=== PATIENT | male | born 1975 | race Two or more races ===

== ENCOUNTER 2021-01-10 11:31 | Outpatient (REF) | payer BC, SELFPAY ==
[2021-01-10 14:36] LABS: Anion Gap 15 (12-20); Blood Urea Nitrogen 18 mg/dL (9-16); Calcium 8.9 mg/dL (8.4-10.2); Carbon Dioxide 22 mmol/L (22-29); Chloride 106 mmol/L (96-108); Cholesterol 283 mg/dL; Estimated Glomerular Filt Rate > 60; Glucose Fasting 97 mg/dL (60-99); HDL Cholesterol 48 mg/dL; LDL Cholesterol Calculated 199 mg/dl; Potassium 4.2 mmol/L (3.3-5.1); Sodium 139 mmol/L (135-145); Triglycerides 180 mg/dL
[2021-01-10 14:41] LABS: Creatinine Urine 265.32 mg/dL
[2021-01-10 14:57] LABS: Microalbum/Creatinine Ratio Ur 690.8 ug/mg cr
== END 2021-01-10 11:32 | disposition home or self-care (01) ==
LOC: HO.HMGCLDS 11:31
PROVIDERS: PCP Internal Medicine; Visit Provider Internal Medicine
DX: I10 Essential (primary) hypertension (principal); E78.2 Mixed hyperlipidemia; R80.9 Proteinuria, unspecified
CPT/HCPCS: 36415; 80048; 80061; 82043

== ENCOUNTER 2021-01-24 10:29 | Outpatient (REF) | payer BC, SELFPAY ==
--- NOTE | ~2021-01-24 | US_ITS ---
EXAMINATION: US RETROPERITONEAL LIMITED (RENAL ONLY) CLINICAL INFORMATION: Proteinuria. Hypertension. COMPARISON: None TECHNIQUE: Real-time imaging of the kidneys. FINDINGS: RIGHT KIDNEY: 11.4 x 6.8 x 6.4 cm (SAG x AP x TRV). The kidney is normal in size, contour, and echogenicity. Renal cortical thickness is normal. No hydronephrosis. A tiny subcentimeter lower pole cyst is noted. No solid masses seen. There are multiple echogenic foci which do not demonstrate twinkle artifact. One measuring about 3 mm could be a stone. LEFT KIDNEY: 12.4 x 6.6 x 5.7 cm (SAG x AP x TRV). The kidney is normal in size, contour, and echogenicity. Renal cortical thickness is normal. No calculi or focal parenchymal lesions. No hydronephrosis. Similar to the right, there are multiple echogenic foci with no twinkle artifact that may be vascular interfaces rather than calculi. US/US renal BI IMPRESSION: Tiny right lower pole renal cyst. Question of mid pole right renal calculus.
[2021-01-24 12:22] LABS: MANUAL DIFF FLAG NO
[2021-01-24 12:28] LABS: Basophils Percent Auto 0.4 % (0-2); Eosinophils Absolute Auto 0.2 X10*3/uL (0.0-0.4); Eosinophils Percent Auto 2.7 % (0-4); Hematocrit 45.8 % (42-52); Hemoglobin 15.8 g/dl (14.0-18.0); Imm Gran Abs Auto 0.02 X10*3/uL (0.00-0.03); Imm Gran Pct Auto 0.3 % (0.0-0.4); Lymphocytes Absolute Auto 3.3 X10*3/uL (1.2-4.9); Lymphocytes Percent Auto 46.9 % (20-40); Mean Corpuscular HGB Conc 34.5 g/dl (31.0-36.0); Mean Corpuscular Hemoglobin 32.3 pg (27.0-33.0); Mean Corpuscular Volume 93.7 fL (80-98); Mean Platelet Volume 10.9 fL (9.4-12.4); Monocytes Absolute Auto 0.5 X10*3/uL (0.1-1.2); Monocytes Percent Auto 6.4 % (2-11); Neutrophils Absolute Auto 3.1 X10*3/uL (2.0-8.3); Neutrophils Percent Auto 43.3 % (45-73); Platelet Count 205 X10*3/uL (160-400); Red Blood Count 4.89 X10*6/uL (4.60-5.80); Red Cell Distribution Width 11.9 % (11.0-16.0); White Blood Count 7.1 X10*3/uL (4.8-10.8)
[2021-01-24 12:32] LABS: Prothrombin Time 11.9 SEC (10.8-13.0)
[2021-01-24 12:45] LABS: Glucose Urine UA NEG (NEG); Leukocyte Esterase Urine NEG (NEG); Nitrite Urine NEG (NEG); Specific Gravity - Urine <= 1.005 (1.005-1.025); Urine Blood NEG (NEG); Urine Ketones NEG (NEG); Urine Protein NEG (NEG-TRACE)
[2021-01-24 12:48] LABS: Appearance Urine CLEAR; Color Urine STRAW
[2021-01-24 13:42] LABS: Creatinine Urine 14.77 mg/dL; Microalbum/Creatinine Ratio Ur 365.6 ug/mg cr
[2021-01-24 13:45] LABS: Alanine Aminotransferase 28 U/L (0-40); Albumin Level 4.2 g/dL (3.5-5.0); Alkaline Phosphatase 67 U/L (39-117); Aspartate Amino Transferase 23 U/L (5-37); Aspartate Amino Transferase 25 U/L (5-37); Bilirubin Direct 0.2 mg/dL (0.0-0.5); Bilirubin Total 0.4 mg/dL (0.0-1.0); Cholesterol 228 mg/dL; HDL Cholesterol 51 mg/dL; LDL Cholesterol Calculated 148 mg/dl; Total Protein 6.6 g/dL (6.5-8.0); Triglycerides 148 mg/dL; Uric Acid 5.3 mg/dL (3.4-7.0)
[2021-01-25 16:22] LABS: Complement C3 126 mg/dL (82-185)
[2021-01-25 22:46] LABS: Prot Elec - Albumin 4.2 g/dL (3.8-4.8); Prot Elec - Alpha1 0.2 g/dL (0.2-0.3); Prot Elec - Alpha2 0.6 g/dL (0.5-0.9); Prot Elec - Beta 1 0.4 g/dL (0.4-0.6); Prot Elec - Beta 2 0.3 g/dL (0.2-0.5); Prot Elec - Gamma 0.8 g/dL (0.8-1.7); Prot Elec - Total Protein 6.6 g/dL (6.1-8.1)
[2021-01-28 15:07] LABS: Anti Glomerular Basement Memb <1.0 AI; Anti Nuclear Antibody Screen NEGATIVE (NEGATIVE); Myeloperoxidase Antibody <1.0 AI; Proteinase 3 PR3 Antibodies <1.0 AI
[2021-01-28 23:56] LABS: Lipoprotein Asso Phospholip A2 113 (<=123)
== END 2021-01-24 10:30 | disposition home or self-care (01) ==
LOC: HO.US 10:29
PROVIDERS: PCP Internal Medicine; Visit Provider Internal Medicine Nephrology
DX: R80.9 Proteinuria, unspecified (principal); I10 Essential (primary) hypertension; E78.2 Mixed hyperlipidemia
CPT/HCPCS: 36415; 76775; 80061; 80076; 81003; 82043; 83520; 83698; 84155; 84165; 84450; 84460; 84550; 85025; 85610; 86021; 86038; 86039; 86160

== ENCOUNTER 2021-01-28 11:27 | Outpatient (REF) | payer BC, SELFPAY ==
[2021-01-28 12:09] LABS: Creatinine, mg/dL 91.89; Protein mg/dL 22 mg/dL
[2021-01-28 12:52] LABS: Creatinine, 24Hr Urine 2.2 G/Day (1.0-2.0); Protein 24 Hr Urine 517 mg/Day (<150); Total Volume 24 Hour Urine 2350 mL
== END 2021-01-28 11:28 | disposition home or self-care (01) ==
LOC: HO.LNP 11:27
PROVIDERS: Visit Provider Internal Medicine Nephrology
DX: R80.9 Proteinuria, unspecified (principal); I10 Essential (primary) hypertension
CPT/HCPCS: 84156

== ENCOUNTER 2021-05-30 09:24 | Outpatient (REF) | payer BC, SELFPAY ==
[2021-05-30 10:39] LABS: Hematocrit 42.6 % (42-52); Hemoglobin 14.8 g/dl (14.0-18.0); Mean Corpuscular HGB Conc 34.7 g/dl (31.0-36.0); Mean Corpuscular Hemoglobin 32.2 pg (27.0-33.0); Mean Corpuscular Volume 92.6 fL (80-98); Mean Platelet Volume 10.8 fL (9.4-12.4); Platelet Count 189 X10*3/uL (160-400); Red Cell Distribution Width 12.4 % (11.0-16.0); White Blood Count 5.9 X10*3/uL (4.8-10.8)
[2021-05-30 10:44] LABS: Prothrombin Time 11.8 SEC (9.9-13.0)
[2021-05-30 11:04] LABS: Anion Gap 12 (12-20); Blood Urea Nitrogen 13 mg/dL (9-16); Calcium 9.1 mg/dL (8.4-10.2); Carbon Dioxide 26 mmol/L (22-29); Chloride 106 mmol/L (96-108); Estimated Glomerular Filt Rate > 60; Potassium 4.4 mmol/L (3.3-5.1); Sodium 140 mmol/L (135-145)
[2021-05-30 11:14] LABS: Alanine Aminotransferase 33 U/L (0-40); Aspartate Amino Transferase 30 U/L (5-37); Cholesterol 223 mg/dL; HDL Cholesterol 40 mg/dL; LDL Cholesterol Calculated 147 mg/dl; Triglycerides 183 mg/dL
[2021-05-30 11:57] LABS: Creatinine Urine 245.17 mg/dL; Protein/Creatinine Ratio, Ur 0.27 (<0.2); Total Protein Urine Random 67 mg/dL (<12)
== END 2021-05-30 09:25 | disposition home or self-care (01) ==
LOC: HO.HMGCLDS 09:24
PROVIDERS: Absent Provider Internal Medicine Nephrology; PCP Internal Medicine; Visit Provider Internal Medicine
DX: E78.2 Mixed hyperlipidemia (principal); R80.9 Proteinuria, unspecified
CPT/HCPCS: 36415; 80051; 80061; 82310; 82565; 84156; 84450; 84460; 84520; 85027; 85610

== ENCOUNTER 2021-09-27 12:02 | Outpatient (REF) | payer BC, SELFPAY ==
[2021-09-27 14:31] LABS: Anion Gap 13 (12-20); Blood Urea Nitrogen 13 mg/dL (9-16); Calcium 9.2 mg/dL (8.4-10.2); Carbon Dioxide 27 mmol/L (22-29); Chloride 102 mmol/L (96-108); Estimated Glomerular Filt Rate > 60; Potassium 4.4 mmol/L (3.3-5.1); Sodium 138 mmol/L (135-145)
[2021-09-27 14:33] LABS: Alanine Aminotransferase 30 U/L (0-40); Aspartate Amino Transferase 28 U/L (5-37); Cholesterol 211 mg/dL; HDL Cholesterol 44 mg/dL; LDL Cholesterol Calculated 138 mg/dl; Triglycerides 146 mg/dL
[2021-09-27 14:37] LABS: Creatinine Urine 191.36 mg/dL; Protein/Creatinine Ratio, Ur 0.82 (<0.2); Total Protein Urine Random 157 mg/dL (<12)
== END 2021-09-27 12:03 | disposition home or self-care (01) ==
LOC: HO.HMGCLDS 12:02
PROVIDERS: Absent Provider Internal Medicine Nephrology; Visit Provider Internal Medicine
DX: I10 Essential (primary) hypertension (principal); R78.2 Finding of cocaine in blood; R80.9 Proteinuria, unspecified
CPT/HCPCS: 36415; 80051; 80061; 82310; 82565; 84156; 84450; 84460; 84520

== ENCOUNTER 2021-11-15 08:34 | Outpatient (REF) | payer BC, SELFPAY ==
[2021-11-15 11:32] LABS: Eosinophils Absolute Auto 0.1 X10*3/uL (0.0-0.4); Eosinophils Percent Auto 2.2 % (0-4); Hematocrit 44.4 % (42.0-52.0); Hemoglobin 15.3 g/dl (14.0-18.0); Imm Gran Abs Auto 0.01 X10*3/uL (0.00-0.03); Imm Gran Pct Auto 0.2 % (0.0-0.4); Lymphocytes Absolute Auto 2.5 X10*3/uL (1.2-4.9); MANUAL DIFF FLAG NO; Mean Corpuscular HGB Conc 34.5 g/dl (31.0-36.0); Mean Corpuscular Hemoglobin 32.1 pg (27.0-33.0); Mean Corpuscular Volume 93.1 fL (80.0-98.0); Mean Platelet Volume 11.6 fL (9.4-12.4); Monocytes Absolute Auto 0.4 X10*3/uL (0.1-1.2); Monocytes Percent Auto 6.9 % (2-11); Neutrophils Absolute Auto 2.5 x10*3/uL (2.0-8.3); Neutrophils Percent Auto 44.7 % (45-73); Platelet Count 194 X10*3/uL (160-400); Red Blood Count 4.77 X10*6/uL (4.60-5.80); Red Cell Distribution Width 12.1 % (11.0-16.0); White Blood Count 5.5 X10*3/uL (4.8-10.8)
[2021-11-15 11:40] LABS: Appearance Urine CLEAR; Color Urine YELLOW; Glucose Urine UA NEG (NEG); Leukocyte Esterase Urine NEG (NEG); Nitrite Urine NEG (NEG); Specific Gravity - Urine 1.015 (1.005-1.025); Urine Blood NEG (NEG); Urine Ketones NEG (NEG); Urine Protein TRACE MG/DL (NEG-TRACE)
[2021-11-15 11:46] LABS: Prothrombin Time 11.7 SEC (9.9-13.0)
[2021-11-15 11:57] LABS: Anion Gap 12 (12-20); Blood Urea Nitrogen 16 mg/dL (9-16); Calcium 9.4 mg/dL (8.4-10.2); Carbon Dioxide 28 mmol/L (22-29); Chloride 104 mmol/L (96-108); Estimated Glomerular Filt Rate > 60; Potassium 4.6 mmol/L (3.3-5.1); Sodium 139 mmol/L (135-145)
[2021-11-15 12:16] LABS: HIV AB/AG Nonreactive (Nonreactive); HIV Num 1 0.06 S/CO (0.00-0.99); Protein/Creatinine Ratio, Ur 0.13 (<0.2); Total Protein Urine Random 27 mg/dL (<12)
[2021-11-15 14:00] LABS: HBS Num1 0.78 mIU/mL (0-7.99); ~HepC Num1 0.11 S/CO (0.00-0.79); ~Hepatitis B Surface Antibody NONREACTIVE (Nonreactive); ~Hepatitis C Antibody Nonreactive (Nonreactive)
[2021-11-18 11:56] LABS: Complement C3 90 mg/dL (82-185)
[2021-11-18 16:17] LABS: Neutrophil Cyto Ab Screen NEGATIVE (NEGATIVE)
[2021-11-18 17:37] LABS: Kappa Light Chains Quant. RU <1.00 mg/dL (<2.00); Lambda Light Chains Quant. RU <1.00 mg/dL (<2.00)
[2021-11-19 07:36] LABS: Anti Nuclear Antibody Screen NEGATIVE (NEGATIVE)
== END 2021-11-15 08:35 | disposition home or self-care (01) ==
LOC: HO.HMGCLDS 08:34
PROVIDERS: Visit Provider Internal Medicine Nephrology
DX: R80.9 Proteinuria, unspecified (principal); I10 Essential (primary) hypertension
CPT/HCPCS: 80051; 81003; 82310; 82565; 83520; 83883; 84156; 84520; 85025; 85610; 86036; 86037; 86038; 86039; 86160; 86255; 86706; 86803; 87389

== ENCOUNTER 2021-11-18 08:29 | Outpatient (REF) | payer BC, SELFPAY ==
[2021-11-18 13:03] LABS: Creatinine, mg/dL 58.73; Protein mg/dL 17 mg/dL
[2021-11-18 13:08] LABS: Creatinine, 24Hr Urine 1.8 G/Day (1.0-2.0); Protein 24 Hr Urine 519 mg/Day (<150); Total Volume 24 Hour Urine 3050 mL
== END 2021-11-18 08:30 | disposition home or self-care (01) ==
LOC: HO.HMGCLNP 08:29
PROVIDERS: Visit Provider Internal Medicine Nephrology
DX: R80.9 Proteinuria, unspecified (principal); I10 Essential (primary) hypertension
CPT/HCPCS: 84156

== ENCOUNTER 2022-01-10 09:59 | Outpatient (REF) | payer BC, SELFPAY ==
[2022-01-10 11:49] LABS: Alanine Aminotransferase 40 U/L (0-40); Aspartate Amino Transferase 27 U/L (5-37); Cholesterol 209 mg/dL; HDL Cholesterol 42 mg/dL; LDL Cholesterol Calculated 132 mg/dl; Triglycerides 177 mg/dL
== END 2022-01-10 10:00 | disposition home or self-care (01) ==
LOC: HO.HMGCLDS 09:59
PROVIDERS: PCP Internal Medicine; Visit Provider Internal Medicine
DX: E78.2 Mixed hyperlipidemia (principal)
CPT/HCPCS: 36415; 80061; 84450; 84460

== ENCOUNTER 2022-04-29 12:04 | Outpatient (REF) | payer BC, SELFPAY ==
[2022-04-29 14:06] LABS: Alanine Aminotransferase 59 U/L (0-40); Anion Gap 14 (12-20); Aspartate Amino Transferase 39 U/L (5-37); Blood Urea Nitrogen 14 mg/dL (9-16); Calcium 9.2 mg/dL (8.4-10.2); Carbon Dioxide 26 mmol/L (22-29); Chloride 105 mmol/L (96-108); Cholesterol 193 mg/dL; Estimated Glomerular Filt Rate > 60; Glucose Fasting 103 mg/dL (60-99); HDL Cholesterol 41 mg/dL; LDL Cholesterol Calculated 119 mg/dl; Potassium 4.2 mmol/L (3.3-5.1); Sodium 141 mmol/L (135-145); Triglycerides 166 mg/dL
== END 2022-04-29 12:05 | disposition home or self-care (01) ==
LOC: HO.HMGCLDS 12:04
PROVIDERS: PCP Internal Medicine; Visit Provider Internal Medicine
DX: E78.2 Mixed hyperlipidemia (principal); I10 Essential (primary) hypertension
CPT/HCPCS: 36415; 80048; 80061; 84450; 84460

== ENCOUNTER 2022-06-19 10:19 | Outpatient (REF) | payer BC, SELFPAY ==
[2022-06-19 14:27] LABS: Anion Gap 15 (12-20); Blood Urea Nitrogen 17 mg/dL (9-16); Calcium 9.8 mg/dL (8.4-10.2); Carbon Dioxide 26 mmol/L (22-29); Chloride 103 mmol/L (96-108); Estimated Glomerular Filt Rate > 60; Potassium 4.8 mmol/L (3.3-5.1); Sodium 139 mmol/L (135-145)
[2022-06-19 16:40] LABS: Creatinine Urine 281.02 mg/dL; Protein/Creatinine Ratio, Ur 0.66 (<0.2); Total Protein Urine Random 185 mg/dL (<12)
== END 2022-06-19 10:20 | disposition home or self-care (01) ==
LOC: HO.HMGCLDS 10:19
PROVIDERS: PCP Internal Medicine; Visit Provider Internal Medicine Nephrology
DX: I10 Essential (primary) hypertension (principal); R80.9 Proteinuria, unspecified
CPT/HCPCS: 36415; 80051; 82310; 82565; 84156; 84520

== ENCOUNTER 2022-09-15 11:09 | Outpatient (REF) | payer BC, SELFPAY ==
[2022-09-15 14:23] LABS: Hematocrit 38.4 % (42.0-52.0); Hemoglobin 13.6 g/dl (14.0-18.0); Mean Corpuscular HGB Conc 35.4 g/dl (31.0-36.0); Mean Corpuscular Hemoglobin 32.4 pg (27.0-33.0); Mean Corpuscular Volume 91.4 fL (80.0-98.0); Mean Platelet Volume 10.9 fL (9.4-12.4); Platelet Count 229 X10*3/uL (160-400); Red Cell Distribution Width 11.9 % (11.0-16.0); White Blood Count 4.9 X10*3/uL (4.8-10.8)
[2022-09-15 14:54] LABS: Prostate Specific Antigen Scr 26.93 ng/mL (<0.05-4.0)
== END 2022-09-15 11:10 | disposition home or self-care (01) ==
LOC: HO.HMGCLDS 11:09
PROVIDERS: Visit Provider Internal Medicine
DX: N41.0 Acute prostatitis (principal); Z12.5 Encounter for screening for malignant neoplasm of prostate
CPT/HCPCS: 36415; 84153; 85027

== ENCOUNTER 2022-09-25 09:07 | Outpatient (REF) | payer BC, SELFPAY ==
[2022-09-25 11:22] LABS: MANUAL DIFF FLAG NO
[2022-09-25 11:28] LABS: Basophils Percent Auto 0.3 % (0-2); Eosinophils Absolute Auto 0.2 X10*3/uL (0.0-0.4); Eosinophils Percent Auto 2.6 % (0-4); Hematocrit 42.3 % (42.0-52.0); Hemoglobin 14.4 g/dl (14.0-18.0); Imm Gran Abs Auto 0.01 X10*3/uL (0.00-0.03); Imm Gran Pct Auto 0.2 % (0.0-0.4); Lymphocytes Absolute Auto 3.5 X10*3/uL (1.2-4.9); Lymphocytes Percent Auto 56.6 % (20-40); Mean Corpuscular Hemoglobin 31.9 pg (27.0-33.0); Mean Corpuscular Volume 93.6 fL (80.0-98.0); Mean Platelet Volume 10.4 fL (9.4-12.4); Monocytes Absolute Auto 0.3 X10*3/uL (0.1-1.2); Monocytes Percent Auto 5.6 % (2-11); Neutrophils Absolute Auto 2.1 x10*3/uL (2.0-8.3); Neutrophils Percent Auto 34.7 % (45-73); Platelet Count 277 X10*3/uL (160-400); Red Blood Count 4.52 X10*6/uL (4.60-5.80); Red Cell Distribution Width 12.3 % (11.0-16.0); White Blood Count 6.1 X10*3/uL (4.8-10.8)
[2022-09-25 12:00] LABS: Iron 83 mcg/dL (45-160); Percent Iron Saturation 27 % (15-50); Total Iron Binding Capacity 306 mcg/dL (228-428); Unsaturated Iron Binding 223 ug/dL
[2022-09-25 12:32] LABS: PSA,Total (Free>4and<10) 7.72 ng/mL (0.00-4.00)
[2022-09-29 11:03] LABS: Free Prostate Spec Ag 0.3 ng/mL; Percent Free Prostate Spec Ag 4 % (calc) (>25); Prostate Specific Ag Total 7.4 ng/mL (< OR = 4.0)
== END 2022-09-25 09:08 | disposition home or self-care (01) ==
LOC: HO.HMGCLDS 09:07
PROVIDERS: PCP Internal Medicine; Visit Provider Internal Medicine
DX: Z12.5 Encounter for screening for malignant neoplasm of prostate (principal); N41.0 Acute prostatitis; R97.20 Elevated prostate specific antigen [PSA]; D64.9 Anemia, unspecified
CPT/HCPCS: 36415; 83540; 84153; 84154; 85025

== ENCOUNTER 2022-10-02 09:25 | Outpatient (AMB) | payer BC, SELFPAY ==
--- NOTE | 2022-10-02 09:31 | A.OFFPC_ITS ---
Vital Signs 10/02/22 09:32 Height 5 ft 5 in Weight 170 lb BMI 28.3 BP 122/80 Blood Pressure Location Lt brachial Position Sitting Pulse 74 Pulse Source Pulse Oximeter Pulse Oximetry (%) 98 Oxygen Delivery Method Room Air Intake Visit Reasons: f/u lab results Allergies dust and pollen Allergy (Unknown, Verified 05/13/23 12:02) unknown Tobacco use date assessed: 10/02/22 HPI f/u lab results HPI Details 47-year-old male patient presenting [facility] office today for follow-up after being seen at the walk-in clinic 09/15/2022 complaining of difficulty urinating with fevers and chills, which has been present now for up approxi mately1 week. This was accompanied by some urinary frequency and urgency and dysuria. Denies any accompanying fever, no nausea vomiting or abdominal pain reported. Denies any penile discharge. Sexually active with just 1 partner. He was prescribed ciprofloxacin to be taken for 7 days with improvement of symptoms but patient states that it started to come back again. [facility] Medical History (Updated 05/13/23 @ 12:19 by Yu Sorto MD) Prostatitis Elevated PSA Anemia Acute prostatitis History of COVID-19 Mixed dyslipidemia Family history of kidney disease Essential hypertension Microalbuminuria Impaired fasting glucose Hypertriglyceridemia Surgical History No pertinent past surgical history Family History Father HTN (hypertension) Stroke Mother Diabetes mellitus HTN (hypertension) Brother Kidney failure Maternal Grandmother Unknown family medical history Sister Breast cancer Son No problems noted. Social History Housing: House Alcohol intake: current Alcohol intake frequency: a few times a week Alcohol type: beer Patient Tobacco Use Status: Never used Tobacco e-Cigarette/Vaping Use: Never Used Second Hand Smoke Exposure: No service: No Current occupational status: employed Cognitive needs: No Hearing needs: No Vision needs: No Questionnaire PHQ-9 Over the last 2 weeks, how often have you been bothered by any of the following problems? 1. Little interest or pleasure in doing things: not at all 2. Feeling down, depressed, or hopeless: not at all 3. Trouble falling or staying asleep, or sleeping too much: not at all 4. Feeling tired or having little energy: not at all 5. Poor appetite or overeating: not at all 6. Feeling bad about yourself - or that you are a failure or have let yourself or your family down: not at all 7. Trouble concentrating on things, such as reading the newspaper or watching television: not at all 8. Moving or speaking so slowly that other people could have noticed. Or the opposite - being so fidgety or restless that you have been moving around a lot more than usual: not at all 9. Thoughts that you would be better off or of hurting yourself in some way: not at all Total score: 0 Depression Screening Interpretation: Negative 78046 - PHQ-9 Billing: Yes Source: Developed by Drs. Ash Haas, Deisy Porter, Anthony Ruiz and colleagues, with an educational nigel from [employer]. Thrive Questionnaire Declines Thrive assessment: No Date Thrive assessed: 10/02/22 I am a: Patient What is your living situation today?: I have a steady place to live Within the past 12 months, did the food you bought not last and you didn't have the money to get more?: Never true Within the past 12 months, did you worry whether your food would run out before you got money to buy more?: Never true Do you have trouble paying for medicines?: No Do you have trouble getting transportation to medical appointments?: No Do you have trouble paying your heating and electricity bill?: No Do you have trouble taking care of your child, family member or friend?: No Do you have trouble with day-to-day activities such as bathing, preparing meals, shopping, managing finances, etc.?: No Are you currently unemployed and looking for a job?: No Are you interested in more education?: No AUDIT C Alcohol Use Questionnaire (AUDIT-C) 1. How often do you have a drink containing alcohol?: Never 3. How often do you have six or more drinks on one occasion?: Never Total Score: 0 DUTCH-7 AMB Questionnaire DUTCH-7 Date DUTCH - 7 assessed: 10/02/22 Feeling nervous, anxious, or on edge: 0 = Not at all Not being able to stop or control worryin = Not at all Worrying too much about different things: 0 = Not at all Trouble relaxin = Not at all Being so restless that it is hard to sit still: 0 = Not at all Becoming easily annoyed or irritable: 0 = Not at all Feeling afraid as if something awful might happen: 0 = Not at all Total DUTCH-7 score (0-4 normal; 5-9 mild; 10-14 moderate; 15-21 severe): 0 Source: Developed by Drs. Ash Haas, Deisy Porter, Anthony Ruiz and colleagues, with an educational nigel from [employer]. DUTCH-7 Assessment Billing DUTCH-7 Assessment Tool: DUTCH-7 Assessment 16302 Review of Systems Const All systems reviewed & are unremarkable except as noted in HPI and below Physical exam (Primary Care) Vital Signs: Last Vital Signs Pulse 74 10/02/22 09:32 BP 122/80 10/02/22 09:32 Pulse Ox 98 10/02/22 09:32 Oxygen Delivery Method Room Air 10/02/22 09:32 BMI result Body Mass Index 28.3 Tobacco/Smoking Status: Tobacco use Status Tobacco use date assessed 10/02/22 10/02/22 09:35 Patient Tobacco Use Status Never used Tobacco 10/02/22 09:35 e-Cigarette/Vaping Use Never Used 10/02/22 09:35 PHQ-9: PHQ-9 Score PHQ-9: Total score 0 10/02/22 10:24 Depression Screening Interpretation: Negative Thrive Assessment: Date of Thrive Assessment Date Thrive assessed 10/02/22 10/02/22 09:37 Const General: cooperative, healthy appearing, comfortable and no acute distress Nutritional Appearance: overweight HENMT Head: Yes normocephalic and Yes atraumatic Face and sinus: Yes face symmetric Mouth: Normal oral and palatal mucosa present Neck Neck: Yes full ROM, Yes no lymphadenopathy and Yes supple Resp Auscultation: clear to auscultation bilaterally Cardio Rate: regular rate Rhythm: regular rhythm Heart sounds: S1 normal heart sound present and S2 normal heart sound present GI Palpation (GI): Soft to palpation, nontender, no guarding and no masses General: Yes no CVA tenderness Male General Exam: Yes normal external exam Back/Spine/Pelvis Back: no CVA tenderness and No back tenderness Skin General skin exam: no rashes or lesions noted Extrem General: Yes full ROM, Yes no joint enlargement, Yes no clubbing, cyanosis or edema, Yes no pedal edema, Yes no calf tenderness and Yes normal gait Psych Appearance: grossly normal and well kempt Mental Status: mental status grossly normal Speech and movement: Normal speech and movement present Affect: normal affect Attitude: cooperative Thought process: Normal thought process present Results Reviewed Results Reviewed: RUN: 10/02/22 1024 PAGE 1 [facility] [address] [place] [id number] Wax Cutter: Refugio Walton M.D. Specimen Inquiry Name: Miguel Rahman Age/Sex: 47/M : 1975 Unit#: [id number] Attend Dr: Yu Sorto MD Re09/25/22 Status: DEP REF Location: [facility] Disch: SPEC : [id number] TWIN: 09/25/22 STATUS: COMP REQ : [id number] RECD: 09/25/[address]: Yu Sorto MD COMP: 09/25/22 ENTERED: 09/25/[address] [facility] DR: ORDERED: CBC Auto Diff Test Result Flag Reference Site WBC 6.1 4.8-10.8 X10*3/uL RBC 4.52 L 4.60-5.80 X10*6/uL HGB 14.4 14.0-18.0 g/dl HCT 42.3 42.0-52.0 % MCV 93.6 80.0-98.0 fL MCH 31.9 27.0-33.0 pg MCHC 34.0 31.0-36.0 g/dl RDW 12.3 11.0-16.0 % PLT 277 160-400 X10*3/uL MPV 10.4 9.4-12.4 fL Neut Pct Auto 34.7 L 45-73 % ImGran Pct Auto 0.2 0.0-0.4 % Lymp Pct Auto 56.6 H 20-40 % [place] Pct Auto 5.6 2-11 % Eos Pct Auto 2.6 0-4 % Baso Pct Auto 0.3 0-2 % NRBC Pct Auto 0.0 0.0-0.2 /100WBC ANC Neut Abs # 2.1 2.0-8.3 x10*3/uL ImGran Abs Auto 0.01 0.00-0.03 X10*3/uL Lymph Abs Auto 3.5 1.2-4.9 X10*3/uL [place] Abs Auto 0.3 0.1-1.2 X10*3/uL Eos Abs Auto 0.2 0.0-0.4 X10*3/uL Baso Abs Auto 0.0 0.0-0.2 X10*3/uL NRBC Abs Auto 0.000 0.0-0.012 X10*3/uL ENTERED: 09/25/22-[address]: ORDERED: IRON PROF, PSA W/ REFLEX Test Result Flag Reference Site Iron 83 45-160 mcg/dL TIBC 306 228-428 mcg/dL Saturation 27 15-50 % UIBC 223 ug/dL PSA W/ REFLEX 7.72 H 0.00-4.00 ng/mL PSA methodology: Conektanity i Chemiluminescent Microparticle Immunoassay (CMIA) Assessment and Plan Assessment & Plan (1) Acute prostatitis: Code(s): N41.0 - Acute prostatitis Plan: Already prescribed ciprofloxacin with initial improvement, now with recurrence of symptoms, will refer to urology for further evaluation and management (2) Elevated PSA: Code(s): R97.20 - Elevated prostate specific antigen [PSA] Orders: Referrals Urology Referral N41.0 - Acute prostatitis, R97.20 - Elevated prostate specific antigen [PSA] Coding Level of Care Code Est Pt Level 3 (94329) Diagnoses Acute prostatitis N41.0 Elevated PSA R97.20 Additional Codes DUTCH-7 Assessment Billing - DUTCH-7 Assessment Tool: DUTCH-7 Assessment 37278 ([id number])
[2022-10-02 09:32] VITALS: BP 122/80; PULSE 74; O2SAT 98; BMI 28.3
== END 2022-10-02 11:01 | disposition home or self-care (01) ==
LOC: HO.HMGC 09:25
PROVIDERS: PCP Internal Medicine; Visit Provider Internal Medicine
DX: N41.0 Acute prostatitis (principal); R97.20 Elevated prostate specific antigen [PSA]
CPT/HCPCS: 99213

== ENCOUNTER → 2022-10-09 13:04 | Outpatient (BNVA) | payer BC, SELFPAY | PROVIDERS: PCP Internal Medicine; Visit Provider Nurse Practitioner Family | DX: Z13.89 Encounter for screening for other disorder (principal) ==

== ENCOUNTER 2022-10-31 09:44 | Outpatient (REF) | payer BC, SELFPAY ==
[2022-10-31 13:35] LABS: Cholesterol 194 mg/dL; HDL Cholesterol 40 mg/dL; LDL Cholesterol Calculated 125 mg/dl; Triglycerides 146 mg/dL
== END 2022-10-31 09:45 | disposition home or self-care (01) ==
LOC: HO.HMGCLDS 09:44
PROVIDERS: PCP Internal Medicine; Visit Provider Internal Medicine
DX: E78.2 Mixed hyperlipidemia (principal)
CPT/HCPCS: 36415; 80061

== ENCOUNTER 2022-11-07 13:06 | Outpatient (REF) | payer BC, SELFPAY ==
[2022-11-07 16:53] LABS: Urine Cytology See Pathology rpt
== END 2022-11-07 13:07 | disposition home or self-care (01) ==
LOC: HO.LAB 13:06
PROVIDERS: PCP Internal Medicine; Visit Provider Nurse Practitioner Family
DX: N41.0 Acute prostatitis (principal); R97.20 Elevated prostate specific antigen [PSA]; Z79.899 Other long term (current) drug therapy
CPT/HCPCS: 88112

== ENCOUNTER 2022-11-11 09:07 | Outpatient (REF) | payer BC, SELFPAY ==
[2022-11-11 13:17] LABS: Prostate Specific Antigen 1.13 ng/mL (<0.05-4.0)
== END 2022-11-11 09:08 | disposition home or self-care (01) ==
LOC: HO.HMGCLDS 09:07
PROVIDERS: PCP Internal Medicine; Visit Provider Nurse Practitioner Family
DX: N41.0 Acute prostatitis (principal); R97.20 Elevated prostate specific antigen [PSA]; Z12.5 Encounter for screening for malignant neoplasm of prostate
CPT/HCPCS: 36415; 84153

== ENCOUNTER 2023-02-20 08:57 | Outpatient (REF) | payer BC, SELFPAY | END 2023-02-20 08:58 | disposition home or self-care (01) | LOC: HO.HMGCLDS 08:57 | PROVIDERS: PCP Internal Medicine; Visit Provider Nurse Practitioner Family | DX: Z12.5 Encounter for screening for malignant neoplasm of prostate (principal); R97.20 Elevated prostate specific antigen [PSA] | CPT/HCPCS: 36415; 84153 ==

== ENCOUNTER 2023-02-23 14:09 | Outpatient (AMB) | payer BC, SELFPAY ==
--- NOTE | 2023-02-23 14:14 | MHC.OFFVIS ---
Intake Intake Visit Reasons: 4m/labs(having drawn 02/20) Intake Note: Patient is present for follow up prostatitis/labs (PSA 0.80) Urology Medications: none Blood Thinner: none Student Services Counselor Required: No Accompanied by: Self / Same As Patient Allergies dust and pollen Allergy (Unknown, Verified 02/23/23 23:30) unknown Medication List - Last Reconciled 02/23/23 by RASHEED Johnson lisinopril 40 mg PO DAILY rosuvastatin 5 mg PO DAILY 90 days HPI HPI Comments History of Present Illness Details Miguel is a very pleasant 47-year-old male patient of Dr. Sorto. He presents to the office today for follow-up of prostatitis and elevated PSA. Of note, patient was seen approximately 3 month ago at which time he has since completed antibiotic therapy for prostatitis and redraw of PSA was ordered. These results were reviewed with the patient today. In assessment evaluation of the patient today he reports to be doing much better. He does report having dysuria at times however described these episodes as infrequent and not bothersome, He feels symptoms arise when consuming increased amounts of coffee. He denies any urological issues or concerns at this time. He denies urinary urgency, urinary frequency, incontinence, nocturia, hematuria, foul smelling urine, changes to urinary stream, flank pain, fever, and or chills. In office urinalysis results reviewed with the patient today. PSAs are as follows.... PSA 09/08--26.9, 10/09-- 7.7, 03/08--0.8. [facility] Medical History (Updated 02/23/23 @ 23:40 by RASHEED Johnson) Acute prostatitis Anemia Elevated PSA Essential hypertension Family history of kidney disease History of COVID-19 Hypertriglyceridemia Impaired fasting glucose Microalbuminuria Mixed dyslipidemia Prostatitis Surgical History No pertinent past surgical history Family History Father HTN (hypertension) Stroke Mother Diabetes mellitus HTN (hypertension) Brother Kidney failure Maternal Grandmother Unknown family medical history Sister Breast cancer Son No problems noted. Social History Housing: House Alcohol intake: current Alcohol intake frequency: a few times a week Alcohol type: beer Patient Tobacco Use Status: Never used Tobacco e-Cigarette/Vaping Use: Never Used Second Hand Smoke Exposure: No service: No Current occupational status: employed Cognitive needs: No Hearing needs: No Vision needs: No Review of Systems Const All systems reviewed & are unremarkable except as noted in HPI and below Reports as per HPI Eyes Reports no additional complaints ENT Reports no additional complaints Card Reports no additional complaints Resp Reports no additional complaints GI Reports no additional complaints Reports as per HPI Musc Reports no additional complaints Neuro Reports no additional complaints Psych Reports no additional complaints Endo Reports no additional complaints Otf/Lymph Reports no additional complaints Aller/Immun Reports no additional complaints Physical Exam Const General: cooperative, healthy appearing, comfortable, no acute distress, well developed, alert and awake Nutritional Appearance: average body habitus Orientation/consciousness: patient oriented x3 Limitations: no limitations HEENT Head: Yes normal to inspection, Yes normocephalic and Yes atraumatic Ears: hearing grossly normal bilaterally Eyes General: appearance normal, both eyes and all related structures Neck Neck: Yes normal visual inspection and Yes trachea midline Chest Chest palpation & inspection: normal inspection of the chest Resp Effort & Inspection: normal respiratory effort and able to speak in complete sentences Cardio Rate: regular rate GI Inspection: Yes normal to inspection General: Yes no CVA tenderness Back/Spine/Pelvis Back: no CVA tenderness Skin General skin exam: no rashes or lesions noted Neuro General: patient oriented x3 Extrem General: Yes normal to inspection Psych Appearance: grossly normal and well kempt Mental Status: mental status grossly normal Speech and movement: Normal speech and movement present and Clear speech present Affect: normal affect Attitude: cooperative Thought process: Normal thought process present Thought content: Normal thought content present Insight: Good insight present (Psych) Judgement: Good judgement present (Psych) Results AMB Urinalysis, Automated UA Leukoctes 0 Raine/uL Last Edit by [employer] on 02/23/23 14:37 UA Nitrite Negative Last Edit by [employer] on 02/23/23 14:37 UA Urobilinogen 0.2 mg/dL Last Edit by [employer] on 02/23/23 14:37 UA Protein 15 mg/dL Last Edit by [employer] on 02/23/23 14:37 UA pH 6.0 Last Edit by Turner Ijeomamichele on 02/23/23 14:37 UA Blood 10 Anurag/uL Last Edit by Turner Barajas on 02/23/23 14:37 UA Specific Dalton 1.010 Last Edit by Turner Barajas on 02/23/23 14:37 UA Ketone Negative Last Edit by Turner Barajas on 02/23/23 14:37 UA Bilirubin 0 mg/dL Last Edit by Turner Barajas on 02/23/23 14:37 UA Glucose 0 mg/dL Last Edit by Turner Barajas on 02/23/23 14:37 Results Reviewed Results Reviewed: Laboratory Last Values Urine pH (Auto) 6.0 02/23/23 14:19 Specific Dalton (Auto) 1.010 02/23/23 14:19 Urine Protein (Auto) 15 mg/dL 02/23/23 14:19 Glucose (UA)(Auto) 0 mg/dL 02/23/23 14:19 Urine Ketones (Auto) Negative 02/23/23 14:19 Urine Blood (Auto) 10 Anurag/uL 02/23/23 14:19 Urine Nitrite (Auto) Negative 02/23/23 14:19 Urine Bilirubin (Auto) 0 mg/dL 02/23/23 14:19 Urine Urobilinogen (Auto) 0.2 mg/dL 02/23/23 14:19 Leukocyte Esterase (Auto) 0 Raine/uL 02/23/23 14:19 Assessment & Plan Assessment & Plan (1) Elevated PSA: Code(s): R97.20 - Elevated prostate specific antigen [PSA] (2) Hx of prostatitis: Code(s): Z87.438 - Personal history of other diseases of male genital organs Plan In office urinalysis results reviewed with the patient today. Recent PSA results reviewed with the patient today; as noted above. Patient denies any bothersome like urinary symptoms. He is happy with his current voiding parameters. Discussed, educated, and encouraged to continue drinking plenty of water daily. Discussed bladder triggers/irritants. Follow-up in 3 months; if not sooner with any questions, concerns, and or issues Orders: Orders AMB Urinalysis Automated Today Z13.9 - Encounter for screening, unspecified Patient Instructions: The patient had an opportunity to ask questions regarding the treatment plan. All questions were answered. Physical exam, labs, and imaging were discussed and reviewed in detail. As well as risks, benefits, and discussion of treatment choices. No major barriers to understanding were identified. The patient expressed understanding and agreement with the above treatment plan. The patient was made aware they should contact our office by phone for worsening of their current condition, the appearance of new symptoms, or with any questions or concerns. Compliance is encouraged with any medications and follow up testing that is ordered. It is a privilege to be allowed the opportunity to participate in? your urological care.? Again, if you have any questions or concerns If you have any questions or concerns please do not hesitate to contact me. The office is [phone]. This note is constructed using voice recognition software. While every effort has been made to ensure accuracy waterworks chief engineer errors may have been included. Yours sincerely, RAHSEED Johnson Coding Level of Care Code Est Pt Level 3 (43632) Diagnoses Elevated PSA R97.20 Hx of prostatitis Z87.438
== END 2023-02-23 14:51 | disposition home or self-care (01) ==
PROVIDERS: Visit Provider Nurse Practitioner Family
DX: R97.20 Elevated prostate specific antigen [PSA] (principal); Z87.438 Personal history of other diseases of male genital organs
CPT/HCPCS: 99213

== ENCOUNTER → 2023-02-23 14:09 | Outpatient (BNVA) | payer BC, SELFPAY | PROVIDERS: Visit Provider Nurse Practitioner Family ==

== ENCOUNTER 2023-04-29 11:10 | Outpatient (REF) | payer BC, SELFPAY ==
[2023-04-29 13:48] LABS: Alanine Aminotransferase 86 U/L (0-40); Aspartate Amino Transferase 50 U/L (5-37); Cholesterol 184 mg/dL (<200); HDL Cholesterol 42 mg/dL (>40); LDL Cholesterol Calculated 103 mg/dL (<100); Triglycerides 197 mg/dL (<150)
[2023-04-29 13:59] LABS: Creatinine Urine 158.28 mg/dL; Protein/Creatinine Ratio, Ur 0.15 (<0.2); Total Protein Urine Random 24 mg/dL (<12)
== END 2023-04-29 11:11 | disposition home or self-care (01) ==
LOC: HO.HMGCLDS 11:10
PROVIDERS: Absent Provider Internal Medicine Nephrology; PCP Internal Medicine; Visit Provider Internal Medicine
DX: R80.9 Proteinuria, unspecified (principal); I10 Essential (primary) hypertension; E78.2 Mixed hyperlipidemia
CPT/HCPCS: 36415; 80061; 82570; 84156; 84450; 84460

== ENCOUNTER 2023-05-13 10:58 | Outpatient (AMB) | payer BC, SELFPAY ==
--- NOTE | 2023-05-13 11:25 | MHC.PC.OV ---
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 Accompanied by: Self / Same As Patient Allergies dust and pollen Allergy (Unknown, Verified 05/13/23 12:02) unknown Medication List - Last Reconciled 05/13/23 by Yu Sorto MD lisinopril 40 mg PO DAILY rosuvastatin 5 mg PO DAILY 90 days Tobacco use date assessed: 05/13/23 Dental Screening Dental Screen Date: 05/13/23 Did you have a dental visit in the last 12 months?: Yes Did you have a dental problem in the last 6 months where you did not have access to dental care?: No Was dental information given to patient?: Patient has dentist HPI Annual PE HPI Details 47-year-old male here today for physical exam. He has hypertension and hyperlipidemia, currently stable controlled on present treatment. Has been feeling well with no complaints at present time. [facility] Medical History (Updated 05/13/23 @ 12:19 by Yu Sorto MD) Prostatitis Elevated PSA Anemia Acute prostatitis History of COVID-19 Mixed dyslipidemia Family history of kidney disease Essential hypertension Microalbuminuria Impaired fasting glucose Hypertriglyceridemia Surgical History No pertinent past surgical history Family History Father HTN (hypertension) Stroke Mother Diabetes mellitus HTN (hypertension) Brother Kidney failure Maternal Grandmother Unknown family medical history Sister Breast cancer Son No problems noted. Social History Housing: House Alcohol intake: current Alcohol intake frequency: a few times a week Alcohol type: beer Patient Tobacco Use Status: Never used Tobacco e-Cigarette/Vaping Use: Never Used Second Hand Smoke Exposure: No service: No Current occupational status: employed Cognitive needs: No Hearing needs: No Vision needs: No Questionnaire PHQ-9 Over the last 2 weeks, how often have you been bothered by any of the following problems? 1. Little interest or pleasure in doing things: not at all 2. Feeling down, depressed, or hopeless: not at all 3. Trouble falling or staying asleep, or sleeping too much: not at all 4. Feeling tired or having little energy: not at all 5. Poor appetite or overeating: not at all 6. Feeling bad about yourself - or that you are a failure or have let yourself or your family down: not at all 7. Trouble concentrating on things, such as reading the newspaper or watching television: not at all 8. Moving or speaking so slowly that other people could have noticed. Or the opposite - being so fidgety or restless that you have been moving around a lot more than usual: not at all 9. Thoughts that you would be better off or of hurting yourself in some way: not at all Total score: 0 Depression Screening Interpretation: Negative 50891 - PHQ-9 Billing: Yes Source: Developed by Drs. Ash Haas, Deisy Porter, Anthony Ruiz and colleagues, with an educational nigel from [employer]. Thrive Questionnaire Date Thrive assessed: 05/13/23 I am a: Patient What is your living situation today?: I have a steady place to live Within the past 12 months, did the food you bought not last and you didn't have the money to get more?: Never true Within the past 12 months, did you worry whether your food would run out before you got money to buy more?: Never true Do you have trouble paying for medicines?: No Do you have trouble getting transportation to medical appointments?: No Do you have trouble paying your heating and electricity bill?: No Do you have trouble taking care of your child, family member or friend?: No Do you have trouble with day-to-day activities such as bathing, preparing meals, shopping, managing finances, etc.?: No Are you currently unemployed and looking for a job?: No Are you interested in more education?: No Please select the resources that you would like help with: None Currently or been in a relationship where the following occur: I choose not to answer this question DUTCH-7 AMB Questionnaire DUTCH-7 Date DUTCH - 7 assessed: 05/13/23 Feeling nervous, anxious, or on edge: 0 = Not at all Not being able to stop or control worryin = Not at all Worrying too much about different things: 0 = Not at all Trouble relaxin = Not at all Being so restless that it is hard to sit still: 0 = Not at all Becoming easily annoyed or irritable: 0 = Not at all Feeling afraid as if something awful might happen: 0 = Not at all Total DUTCH-7 score (0-4 normal; 5-9 mild; 10-14 moderate; 15-21 severe): 0 Source: Developed by Drs. Ash Haas, Deisy Porter, Anthony Ruiz and colleagues, with an educational nigel from [employer]. DUTCH-7 Assessment Billing DUTCH-7 Assessment Tool: DUTCH-7 Assessment 73944 Review of Systems Const All systems reviewed & are unremarkable except as noted in HPI and below Eyes Reports no additional complaints ENT Reports no additional complaints Card Reports no additional complaints Resp Reports no additional complaints GI Reports no additional complaints Reports as per HPI Musc Reports no additional complaints Skin/Breast Denies lesions and Denies rash Neuro Reports no additional complaints Psych Reports no additional complaints Endo Reports no additional complaints Otf/Lymph Reports no additional complaints Aller/Immun Reports no additional complaints Physical exam (Primary Care) Vital Signs: Last Vital Signs Pulse 76 05/13/23 11:29 BP 124/76 05/13/23 11:29 Pulse Ox 98 05/13/23 11:29 BMI result Body Mass Index 28.6 Tobacco/Smoking Status: Tobacco use Status Tobacco use date assessed 05/13/23 05/13/23 11:38 Patient Tobacco Use Status Never used Tobacco 05/13/23 11:25 e-Cigarette/Vaping Use Never Used 05/13/23 11:25 PHQ-9: PHQ-9 Score PHQ-9: Total score 0 05/13/23 12:14 Depression Screening Interpretation: Negative Thrive Assessment: Date of Thrive Assessment Date Thrive assessed 05/13/23 05/13/23 11:38 Currently or been in a relationship where the following occur: I choose not to answer this question Const General: cooperative, healthy appearing, comfortable and no acute distress Orientation/consciousness: patient oriented x3 HENMT Head: Yes normocephalic and Yes atraumatic Face and sinus: Yes face symmetric Mouth: Normal oral and palatal mucosa present Eyes General: appearance normal, both eyes and all related structures Neck Neck: Yes full ROM, Yes no lymphadenopathy and Yes supple Resp Auscultation: clear to auscultation bilaterally Cardio Rate: regular rate Rhythm: regular rhythm Heart sounds: S1 normal heart sound present and S2 normal heart sound present GI Palpation (GI): Soft to palpation, nontender, no guarding and no masses Male General Exam: Yes normal external exam Back/Spine/Pelvis Back: No back tenderness Skin General skin exam: no rashes or lesions noted Neuro General: patient oriented x3, gait normal, moves all extremities and no focal motor deficits Cognition (Neuro): normal cognition Extrem General: Yes full ROM, Yes no joint enlargement, Yes no clubbing, cyanosis or edema, Yes no pedal edema, Yes no calf tenderness and Yes normal gait Psych Appearance: grossly normal and well kempt Mental Status: mental status grossly normal Speech and movement: Normal speech and movement present Affect: normal affect Attitude: cooperative Thought process: Normal thought process present Results Reviewed Results Reviewed: ENTERED: 04/29/23-1118 MIKE BARNES: ORDERED: AST, ALT, Lipid Panel Test Result Flag Reference Site AST (GOT) 50 H 5-37 U/L ALT (GPT) 86 H 0-40 U/L Triglyceride 197 H <150 mg/dL Desirable Triglyceride: less than 150 mg/dL Borderline High Triglyceride 150-199 mg/dL High Triglyceride: 200-499 mg/dL Very High Triglyceride: greater than or equal to 5OO mg/dL Cholesterol 184 <200 mg/dL Desirable Cholesterol: less than 200 mg/dL Borderline High Cholesterol: 200-239 mg/dL High Cholesterol: greater than 239 mg/dL LDL Calculated 103 H <100 mg/dL Desirable LDL: less than 100 mg/dL Near Optimal/Above Optimal LDL: 110-129 mg/dL Borderline High LDL: 130-159 mg/dL High LDL: 160-189 mg/dL Very High LDL: greater than or equal to 190 mg/dL HDL 42 >40 mg/dL Desirable HDL: greater than 40 mg/dL Assessment and Plan Assessment & Plan (1) Annual visit for general adult medical examination with abnormal findings: Code(s): Z00.01 - Encounter for general adult medical examination with abnormal findings Plan: Discuss recent fasting lab results with patient. Continue with regular dental visit every 6 months and regular eye exams, at least every 2 years. Take adequate calcium in diet and vitamin-D 3 at 2000 IU per cap once a day, in addition to weight-bearing exercises to help maintain good muscle tone and weight control. Instructed to do self-testicular exam to check for any mass. Reminded to get his COVID booster and get his yearly flu vaccine. Referred for screening colonoscopy (2) Colon cancer screening: Code(s): Z12.11 - Encounter for screening for malignant neoplasm of colon Plan: GI consult ordered for screening colonoscopy (3) Family history of kidney disease: Code(s): Z84.1 - Family history of disorders of kidney and ureter (4) Essential hypertension: Code(s): I10 - Essential (primary) hypertension (5) Impaired fasting glucose: Code(s): R73.01 - Impaired fasting glucose (6) Mixed dyslipidemia: Code(s): E78.2 - Mixed hyperlipidemia Plan: Reviewed recent fasting lipid profile with patient with elevated triglycerides. . Continue with rosuvastatin 5 mg daily , in addition to adherence to low-cholesterol diet and regular exercise, at least 30 minutes 3 to 4 times a week. Advised patient to make healthy food choices, eat more fruits, vegetables, whole grains, wild caught fish and low-fat dairy. Limit amount of meat and fried or fatty food products, as well as processed foods and fast foods. Follow-up scheduled with repeat fasting lipid panel in months. Orders: Orders Glucose Fasting 3 Months R73.01 - Impaired fasting glucose, E78.2 - Mixed hyperlipidemia Lipid Panel 3 Months R73.01 - Impaired fasting glucose, E78.2 - Mixed hyperlipidemia Alanine Aminotransferase 3 Months R73.01 - Impaired fasting glucose, E78.2 - Mixed hyperlipidemia Aspartate Amino Transferase 3 Months R73.01 - Impaired fasting glucose, E78.2 - Mixed hyperlipidemia Referrals Gastroenterology Referral Z12.11 - Encounter for screening for malignant neoplasm of colon Medications: Refilled rosuvastatin 5 mg PO DAILY 90 tabs 2RF 90 days E78.2 - Mixed hyperlipidemia Coding Level of Care Code Est Pt Prev Care 40-64y(23194) Diagnoses Annual visit for general adult medical examination with abnormal findings Z00.01 Colon cancer screening Z12.11 Family history of kidney disease Z84.1 Essential hypertension I10 Impaired fasting glucose R73.01 Mixed dyslipidemia E78.2 Additional Codes DUTCH-7 Assessment Billing - DUTCH-7 Assessment Tool: DUTCH-7 Assessment 11360 ([id number])
[2023-05-13 11:29] VITALS: BP 124/76; PULSE 76; O2SAT 98; BMI 28.6
== END 2023-05-13 12:56 | disposition home or self-care (01) ==
PROVIDERS: Visit Provider Internal Medicine
DX: Z00.01 Encounter for general adult medical examination with abnormal findings (principal); Z12.11 Encounter for screening for malignant neoplasm of colon; Z84.1 Family history of disorders of kidney and ureter; I10 Essential (primary) hypertension; R73.01 Impaired fasting glucose; E78.2 Mixed hyperlipidemia
CPT/HCPCS: 99396

== ENCOUNTER 2023-06-17 14:31 | Outpatient (AMB) | payer BC, SELFPAY ==
--- NOTE | 2023-06-17 14:32 | A.OFFVIS_ITS ---
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 Sorto. He has a past medical history of prostatitis, hypertension, anemia, and mixed dyslipidemia. He presents to the office today for follow-up of prostatitis and elevated PSA. When asked patient reports to be doing and feeling well. He repo rts significant improvement in lower urinary tract symptoms he had been experiencing. He reports very infrequent episodes of urinary frequency however does not find this bothersome. He otherwise denies any bothersome urinary issues or concerns at this time. In office urinalysis results reviewed with the patient today. He denies urinary urgency, incontinence, nocturia, hematuria, foul smelling urine, changes to urinary stream, flank pain, fever, and or chills. In office urinalysis results reviewed with the patient today. PSAs are as follows.... PSA 09/08--26.9, 10/09-- 7.7, 03/08--0.8. Discussed at length potential causes for prostatitis. Discussed and stressed the importance of drinking plenty of fluid daily. He otherwise denies any bothersome issues or concerns at this time. [facility] Medical History Elevated PSA, between 10 and less than 20 ng/ml Prostatitis Elevated PSA Anemia Acute prostatitis History of COVID-19 Mixed dyslipidemia Family history of kidney disease Essential hypertension Microalbuminuria Impaired fasting glucose Hypertriglyceridemia Surgical History No pertinent past surgical history Family History Father HTN (hypertension) Stroke Mother Diabetes mellitus HTN (hypertension) Brother Kidney failure Maternal Grandmother Unknown family medical history Sister Breast cancer Son No problems noted. Social History Housing: House Alcohol intake: current Alcohol intake frequency: a few times a week Alcohol type: beer Patient Tobacco Use Status: Never used Tobacco e-Cigarette/Vaping Use: Never Used Second Hand Smoke Exposure: No service: No Current occupational status: employed Cognitive needs: No Hearing needs: No Vision needs: No Review of Systems Const Reports no additional complaints Eyes Reports no additional complaints ENT Reports no additional complaints Card Reports as per HPI Resp Reports no additional complaints Reports as per HPI Musc Reports no additional complaints Neuro Reports no additional complaints Psych Reports no additional complaints Endo Reports no additional complaints Otf/Lymph Reports as per HPI Physical Exam Const General: cooperative, healthy appearing, comfortable, no acute distress, well developed, alert and awake Nutritional Appearance: average body habitus Orientation/consciousness: patient oriented x3 Limitations: no limitations HEENT Head: Yes normal to inspection, Yes normocephalic and Yes atraumatic Ears: hearing grossly normal bilaterally Eyes General: appearance normal, both eyes and all related structures Neck Neck: Yes normal visual inspection and Yes trachea midline Chest Chest palpation & inspection: normal inspection of the chest Resp Effort & Inspection: normal respiratory effort and able to speak in complete sentences Cardio Rate: regular rate GI Inspection: Yes normal to inspection General: Yes no CVA tenderness Back/Spine/Pelvis Back: no CVA tenderness Skin General skin exam: no rashes or lesions noted Neuro General: patient oriented x3 Extrem General: Yes normal to inspection Psych Appearance: grossly normal and well kempt Mental Status: mental status grossly normal Speech and movement: Normal speech and movement present and Clear speech present Affect: normal affect Attitude: cooperative Thought process: Normal thought process present Thought content: Normal thought content present Insight: Good insight present (Psych) Judgement: Good judgement present (Psych) Results AMB Urinalysis, Automated UA Leukoctes 0 Raine/uL Last Edit by Turner Barajas on 06/17/23 14:52 UA Nitrite Negative Last Edit by Turner Barajas on 06/17/23 14:52 UA Urobilinogen 0.2 mg/dL Last Edit by [employer]la Barajas on 06/17/23 14:52 UA Protein 0 mg/dL Last Edit by Turner Barajas on 06/17/23 14:52 UA pH 6.0 Last Edit by Turner Barajas on 06/17/23 14:52 UA Blood 0 Anurag/uL Last Edit by Turner Barajas on 06/17/23 14:52 UA Specific [place] 1.020 Last Edit by Turner Barajas on 06/17/23 14:52 UA Ketone Negative Last Edit by Turner Barajas on 06/17/23 14:52 UA Bilirubin 0 mg/dL Last Edit by Turner Barajas on 06/17/23 14:52 UA Glucose 0 mg/dL Last Edit by Turner Barajas on 06/17/23 14:52 Results Reviewed Results Reviewed: Laboratory Last Values Urine pH (Auto) 6.0 06/17/23 14:46 Specific [place] (Auto) 1.020 06/17/23 14:46 Urine Protein (Auto) 0 mg/dL 06/17/23 14:46 Glucose (UA)(Auto) 0 mg/dL 06/17/23 14:46 Urine Ketones (Auto) Negative 06/17/23 14:46 Urine Blood (Auto) 0 Anurag/uL 06/17/23 14:46 Urine Nitrite (Auto) Negative 06/17/23 14:46 Urine Bilirubin (Auto) 0 mg/dL 06/17/23 14:46 Urine Urobilinogen (Auto) 0.2 mg/dL 06/17/23 14:46 Leukocyte Esterase (Auto) 0 Raine/uL 06/17/23 14:46 Assessment & Plan Assessment & Plan (1) Elevated PSA: Code(s): R97.20 - Elevated prostate specific antigen [PSA] (2) Hx of prostatitis: Code(s): Z87.438 - Personal history of other diseases of male genital organs Plan In office urinalysis results reviewed with the patient today; as noted above. Patient denies any bothersome urinary issues or concerns at this time. He is happy with his current voiding parameters. Discussed at length potential causes for prostatitis. Discussed, educated, and encouraged to continue drinking plenty of water daily. Will obtain PSA in 6 months. Follow-up in 6 months with labs to be completed prior; or sooner with any issues, concerns, and or questions. Orders: Orders AMB Urinalysis Automated Today Z13.9 - Encounter for screening, unspecified Prostate Specific Antigen 6 Months R97.20 - Elevated prostate specific antigen [PSA] Patient Instructions: The patient had an opportunity to ask questions regarding the treatment plan. All questions were answered. Physical exam, labs, and imaging were discussed and reviewed in detail. As well as risks, benefits, and discussion of treatment choices. No major barriers to understanding were identified. The patient expressed understanding and agreement with the above treatment plan. The patient was made aware they should contact our office by phone for worsening of their current condition, the appearance of new symptoms, or with any questions or concerns. Compliance is encouraged with any medications and follow up testing that is ordered. It is a privilege to be allowed the opportunity to participate in? your urological care.? Again, if you have any questions or concerns If you have any questions or concerns please do not hesitate to contact me. The office is [phone]. This note is constructed using voice recognition software. While every effort has been made to ensure accuracy director global market research errors may have been included. Yours sincerely, RASHEED Johnson Coding Level of Care Code Est Pt Level 3 (18251) Diagnoses Elevated PSA R97.20 Hx of prostatitis Z87.438
== END 2023-06-17 15:05 | disposition home or self-care (01) ==
PROVIDERS: PCP Internal Medicine; Visit Provider Nurse Practitioner Family
DX: R97.20 Elevated prostate specific antigen [PSA] (principal); Z87.438 Personal history of other diseases of male genital organs
CPT/HCPCS: 99213

== ENCOUNTER → 2023-06-17 14:31 | Outpatient (BNVA) | payer BC, SELFPAY | PROVIDERS: PCP Internal Medicine; Visit Provider Nurse Practitioner Family | DX: R97.20 Elevated prostate specific antigen [PSA] (principal); N41.0 Acute prostatitis | CPT/HCPCS: 81003 ==

== ENCOUNTER 2023-10-19 08:33 | Outpatient (REF) | payer BC, SELFPAY ==
[2023-10-19 12:07] LABS: Alanine Aminotransferase 58 U/L (0-40); Anion Gap 11 (12-20); Aspartate Amino Transferase 39 U/L (5-37); Blood Urea Nitrogen 12 mg/dL (9-16); Carbon Dioxide 28 mmol/L (22-29); Chloride 105 mmol/L (96-108); Cholesterol 172 mg/dL (<200); Estimated Glomerular Filt Rate > 60; HDL Cholesterol 39 mg/dL (>40); LDL Cholesterol Calculated 102 mg/dL (<100); Potassium 4.5 mmol/L (3.3-5.1); Sodium 139 mmol/L (135-145); Triglycerides 156 mg/dL (<150)
[2023-10-19 12:16] LABS: Glucose Fasting 111 mg/dL (60-99)
[2023-10-19 12:30] LABS: Protein/Creatinine Ratio, Ur 0.06 (<0.2); Total Protein Urine Random 10 mg/dL (<12)
== END 2023-10-19 08:34 | disposition home or self-care (01) ==
LOC: HO.HMGCLDS 08:33
PROVIDERS: PCP Internal Medicine; Referring Provider Internal Medicine; Visit Provider Internal Medicine Nephrology
DX: R80.9 Proteinuria, unspecified (principal); R73.01 Impaired fasting glucose; E78.2 Mixed hyperlipidemia
CPT/HCPCS: 36415; 80051; 80061; 82565; 82570; 82947; 84156; 84450; 84460; 84520

== ENCOUNTER 2023-10-21 16:01 | Outpatient (AMB) | payer BC, SELFPAY ==
[2023-10-21 15:58] VITALS: BP 110/74; PULSE 112; O2SAT 96; BMI 29.0
--- NOTE | 2023-10-21 15:58 | HO.NEPHOV_ITS ---
HPI HPI Comments History of Present Illness Details I had the privilege of seeing Mr. Rahman in follow-up of his hypertension and proteinuria. His brother and sister had in [facility] at a young age from ESRD likely from [place] nephropathy. He is tolerating his medications. His blood pressure has been at goal. He denies any skin rash, hematuria, edema or orthostatic symptoms. He claims to be compliant with his medications. He avoids nonsteroidal anti-inflammatories and maintains good hydration. There were no new active issues at the time of this office visit. [facility] Medical History Elevated PSA, between 10 and less than 20 ng/ml Prostatitis Elevated PSA Anemia Acute prostatitis History of COVID-19 Mixed dyslipidemia Family history of kidney disease Essential hypertension Microalbuminuria Impaired fasting glucose Hypertriglyceridemia Surgical History No pertinent past surgical history Family History Father HTN (hypertension) Stroke Mother Diabetes mellitus HTN (hypertension) Brother Kidney failure Maternal Grandmother Unknown family medical history Sister Breast cancer Son No problems noted. Social History Housing: House Alcohol intake: current Alcohol intake frequency: a few times a week Alcohol type: beer Patient Tobacco Use Status: Never used Tobacco e-Cigarette/Vaping Use: Never Used Second Hand Smoke Exposure: No service: No Current occupational status: employed Cognitive needs: No Hearing needs: No Vision needs: No Vital Signs 10/21/23 15:58 Height 5 ft 5 in Weight 174 lb 8 oz BMI 29.0 BP 110/74 Blood Pressure Location Lt brachial Position Sitting Pulse 112 H Pulse Source Pulse Oximeter Pulse Oximetry (%) 96 Oxygen Delivery Method Room Air Physical Exam Vital Signs: Last Vital Signs Pulse 112 H 10/21/23 15:58 BP 110/74 10/21/23 15:58 Pulse Ox 96 10/21/23 15:58 Oxygen Delivery Method Room Air 10/21/23 15:58 BMI result Body Mass Index 29.0 Const General: comfortable and no acute distress Orientation/consciousness: patient oriented x3 HEENT Head: Yes normocephalic Mouth: Normal oral and palatal mucosa present Eyes EOM: EOMs intact bilaterally Neck Neck: Yes supple Resp Auscultation: clear to auscultation bilaterally Cardio Jugular venous distension: no JVD Rate: regular rate GI Palpation (GI): Soft to palpation Auscultation: normal bowel sounds General: Yes no CVA tenderness Back/Spine/Pelvis Back: no CVA tenderness Skin General skin exam: no rashes or lesions noted Neuro General: patient oriented x3 and moves all extremities Extrem General: Yes no pedal edema Assessment & Plan Assessment & Plan (1) Proteinuria: Code(s): R80.9 - Proteinuria, unspecified Qualifiers: Proteinuria type: other Qualified Code(s): R80.8 - Other proteinuria (2) Essential hypertension: Code(s): I10 - Essential (primary) hypertension Plan Miguel had proteinuria for a while. His family has a history of [place] nephropathy. His proteinuria is not detectable on IRWIN-inhibitor. His blood pressure has been at goal. His renal functions are normal. He has no hematuria. There is no indication for any renal biopsy now. He avoids nonsteroidal anti-inflammatories and maintain good hydration. He is on statins. I did not make any medication changes today. Follow-up lab work ordered. Answered all questions. Orders: Orders Electrolytes 10/21/23 R80.9 - Proteinuria, unspecified, I10 - Essential (primary) hypertension Creatinine 10/21/23 R80.9 - Proteinuria, unspecified, I10 - Essential (primary) hypertension Blood Urea Nitrogen 10/21/23 R80.9 - Proteinuria, unspecified, I10 - Essential (primary) hypertension Protein Creatinine Ratio, Ur 10/21/23 R80.9 - Proteinuria, unspecified, I10 - Essential (primary) hypertension Coding Level of Care Code Est Pt Level 4 (13159) Diagnoses Other proteinuria R80.8 Proteinuria type: other Essential hypertension I10 Results Reviewed Nephrology Results: Sodium 139 mmol/L (135-145) 10/19/23 Potassium 4.5 mmol/L (3.3-5.1) 10/19/23 Chloride 105 mmol/L (96-108) 10/19/23 Carbon Dioxide 28 mmol/L (22-29) 10/19/23 BUN 12 mg/dL (9-16) 10/19/23 Creatinine 0.77 mg/dL (0.5-1.4) 10/19/23 Urine Creatinine 167.00 mg/dL 10/19/23 Protein/Creatinin Ratio 0.06 (<0.2) 10/19/23
== END 2023-10-21 16:25 | disposition home or self-care (01) ==
PROVIDERS: PCP Internal Medicine; Visit Provider Internal Medicine Nephrology
DX: R80.8 Other proteinuria (principal); I10 Essential (primary) hypertension
CPT/HCPCS: 99214

== ENCOUNTER → 2023-10-21 16:01 | Outpatient (BNVA) | payer BC, SELFPAY | PROVIDERS: PCP Internal Medicine; Visit Provider Internal Medicine Nephrology ==

== ENCOUNTER 2023-12-10 10:03 | Outpatient (REF) | payer BC, SELFPAY ==
[2023-12-10 14:07] LABS: Anion Gap 11 (12-20); Blood Urea Nitrogen 16 mg/dL (9-16); Carbon Dioxide 29 mmol/L (22-29); Chloride 104 mmol/L (96-108); Estimated Glomerular Filt Rate > 60; Potassium 4.3 mmol/L (3.3-5.1); Sodium 140 mmol/L (135-145)
[2023-12-10 14:26] LABS: Prostate Specific Antigen 0.62 ng/mL (<0.05-4.0)
[2023-12-10 14:41] LABS: Creatinine Urine 199.56 mg/dL; Total Protein Urine Random 20 mg/dL (<12)
== END 2023-12-10 10:04 | disposition home or self-care (01) ==
LOC: HO.HMGCLDS 10:03
PROVIDERS: PCP Internal Medicine; Referring Provider Internal Medicine Nephrology; Visit Provider Nurse Practitioner Family
DX: R80.9 Proteinuria, unspecified (principal); I10 Essential (primary) hypertension; R97.20 Elevated prostate specific antigen [PSA]; Z12.5 Encounter for screening for malignant neoplasm of prostate
CPT/HCPCS: 36415; 80051; 82565; 82570; 84153; 84156; 84520

== ENCOUNTER 2023-12-16 14:21 | Outpatient (AMB) | payer BC, SELFPAY ==
--- NOTE | 2023-12-16 14:36 | MHC.OFFVIS ---
Intake Visit Reasons: 6m/PSA Intake Note: Patient is present for follow up prostatitis and psa lab results PSA: 0.62 Urology Medications: none Blood Thinner: none Anesthesiologist Assistant Required: No Accompanied by: Self / Same As Patient Allergies dust and pollen Allergy (Unknown, Verified 12/16/23 23:20) unknown Medication List - Last Reconciled 12/16/23 by RASHEED Johnson lisinopril 40 mg PO DAILY rosuvastatin 5 mg PO DAILY 90 days HPI Comments Details: Miguel is a very pleasant 48 year-old male patient of Dr. Sorto. He has a past medical history of prostatitis, hypertension, anemia, and mixed dyslipidemia. He presents to the office today for follow-up of prostatitis and elevated PSA. When asked patient reports to be doing and feeling well. He reports significant improvement in lower urinary tract symptoms he had been experiencing. He reports very infrequent episodes of urinary frequency. He reports he had noted urinary frequency when drinking coffee however he has since stopped. He otherwise denies any bothersome urinary issues or concerns at this time. In office urinalysis results reviewed with the patient today. He denies urinary urgency, incontinence, nocturia, hematuria, foul smelling urine, changes to urinary stream, flank pain, fever, and or chills. In office urinalysis results reviewed with the patient today. PSAs are as follows.... PSA 09/08 26.9, 10/09 7.7, 03/08 0.8, 12/08 0.6 Discussed at length potential causes for prostatitis. Discussed and stressed the importance of drinking plenty of fluid daily. He discusses following up with Nephrology. He otherwise denies any bothersome issues or concerns at this time. [facility] Medical History Elevated PSA, between 10 and less than 20 ng/ml Prostatitis Elevated PSA Anemia Acute prostatitis History of COVID-19 Mixed dyslipidemia Family history of kidney disease Essential hypertension Microalbuminuria Impaired fasting glucose Hypertriglyceridemia Surgical History No pertinent past surgical history Family History Father HTN (hypertension) Stroke Mother Diabetes mellitus HTN (hypertension) Brother Kidney failure Maternal Grandmother Unknown family medical history Sister Breast cancer Son No problems noted. Social History Housing: House Alcohol intake: current Alcohol intake frequency: a few times a week Alcohol type: beer Patient Tobacco Use Status: Never used Tobacco e-Cigarette/Vaping Use: Never Used Second Hand Smoke Exposure: No service: No Current occupational status: employed Cognitive needs: No Hearing needs: No Vision needs: No Review of Systems Const Reports no additional complaints Eyes Reports no additional complaints ENT Reports no additional complaints Card Reports as per HPI Resp Reports no additional complaints Reports as per HPI Musc Reports no additional complaints Neuro Reports no additional complaints Psych Reports no additional complaints Endo Reports no additional complaints Otf/Lymph Reports as per HPI Physical Exam Const General: cooperative, healthy appearing, comfortable, no acute distress, well developed, alert and awake Nutritional Appearance: average body habitus Orientation/consciousness: patient oriented x3 Limitations: no limitations HEENT Head: Yes normal to inspection, Yes normocephalic and Yes atraumatic Ears: hearing grossly normal bilaterally Eyes General: appearance normal, both eyes and all related structures Neck Neck: Yes normal visual inspection and Yes trachea midline Chest Chest palpation & inspection: normal inspection of the chest Resp Effort & Inspection: normal respiratory effort and able to speak in complete sentences Cardio Rate: regular rate GI Inspection: Yes normal to inspection General: Yes no CVA tenderness Back/Spine/Pelvis Back: no CVA tenderness Skin General skin exam: no rashes or lesions noted Neuro General: patient oriented x3 Extrem General: Yes normal to inspection Psych Appearance: grossly normal and well kempt Mental Status: mental status grossly normal Speech and movement: Normal speech and movement present and Clear speech present Affect: normal affect Attitude: cooperative Thought process: Normal thought process present Thought content: Normal thought content present Insight: Good insight present (Psych) Judgement: Good judgement present (Psych) Results AMB Urinalysis, Automated UA Leukoctes 0 Raine/uL Last Edit by Turner Barajas on 12/16/23 14:47 UA Nitrite Negative Last Edit by Turner Barajas on 12/16/23 14:47 UA Urobilinogen 0.2 mg/dL Last Edit by Turner Barajas on 12/16/23 14:47 UA Protein 30 mg/dL Last Edit by Turner Barajas on 12/16/23 14:47 UA pH 6.0 Last Edit by Turner Barajas on 12/16/23 14:47 UA Blood 10 Anurag/uL Last Edit by Turner Barajas on 12/16/23 14:47 UA Specific [place] 1.025 Last Edit by Turner Barajas on 12/16/23 14:47 UA Ketone Negative Last Edit by Turner Barajas on 12/16/23 14:47 UA Bilirubin 0 mg/dL Last Edit by Turner Barajas on 12/16/23 14:47 UA Glucose 0 mg/dL Last Edit by Turner Barajas on 12/16/23 14:47 Results Reviewed Results Reviewed: Laboratory Last Values Urine pH (Auto) 6.0 12/16/23 14:40 Specific [place] (Auto) 1.025 12/16/23 14:40 Urine Protein (Auto) 30 mg/dL 12/16/23 14:40 Glucose (UA)(Auto) 0 mg/dL 12/16/23 14:40 Urine Ketones (Auto) Negative 12/16/23 14:40 Urine Blood (Auto) 10 Anurag/uL 12/16/23 14:40 Urine Nitrite (Auto) Negative 12/16/23 14:40 Urine Bilirubin (Auto) 0 mg/dL 12/16/23 14:40 Urine Urobilinogen (Auto) 0.2 mg/dL 12/16/23 14:40 Leukocyte Esterase (Auto) 0 Raine/uL 12/16/23 14:40 Assessment & Plan Assessment & Plan (1) Elevated PSA: Code(s): R97.20 - Elevated prostate specific antigen [PSA] Category: Medical (2) Hx of prostatitis: Code(s): Z87.438 - Personal history of other diseases of male genital organs Category: Medical Plan In office urinalysis results reviewed with the patient today; as noted above; continue to follow-up with Nephrology regarding proteinuria. Patient currently denies any bothersome urinary issues or concerns. He is happy with his current voiding parameters. Recent PSA results reviewed with the patient today; as noted above. Discussed, educated, and stressed the importance of continuing to drink plenty of water daily. Will obtain PSA in 1 year. Follow-up in 1 year with lab to be completed prior; or sooner with any issues, concerns, and or questions. Orders: Orders Prostate Specific Antigen 1 Year N40.0 - Benign prostatic hyperplasia without lower urinary tract symptoms AMB Urinalysis Automated Today Z13.9 - Encounter for screening, unspecified Patient Instructions: The patient had an opportunity to ask questions regarding the treatment plan. All questions were answered. Physical exam, labs, and imaging were discussed and reviewed in detail. As well as risks, benefits, and discussion of treatment choices. No major barriers to understanding were identified. The patient expressed understanding and agreement with the above treatment plan. The patient was made aware they should contact our office by phone for worsening of their current condition, the appearance of new symptoms, or with any questions or concerns. Compliance is encouraged with any medications and follow up testing that is ordered. It is a privilege to be allowed the opportunity to participate in? your urological care.? Again, if you have any questions or concerns If you have any questions or concerns please do not hesitate to contact me. The office is [phone]. This note is constructed using voice recognition software. While every effort has been made to ensure accuracy ground support equipment mechanic errors may have been included. Yours sincerely, RASHEED Johnson Coding Level of Care Code Est Pt Level 3 (12550) Diagnoses Elevated PSA R97.20 Hx of prostatitis Z87.438
== END 2023-12-16 15:10 | disposition home or self-care (01) ==
PROVIDERS: PCP Internal Medicine; Visit Provider Nurse Practitioner Family
DX: R97.20 Elevated prostate specific antigen [PSA] (principal); Z87.438 Personal history of other diseases of male genital organs
CPT/HCPCS: 99213

== ENCOUNTER → 2023-12-16 14:21 | Outpatient (BNVA) | payer BC, SELFPAY | PROVIDERS: PCP Internal Medicine; Visit Provider Nurse Practitioner Family | DX: R97.20 Elevated prostate specific antigen [PSA] (principal); Z87.438 Personal history of other diseases of male genital organs | CPT/HCPCS: 81003 ==

== ENCOUNTER 2024-04-11 14:21 | Outpatient (REF) | payer BC, SELFPAY ==
[2024-04-11 17:02] LABS: Prostate Specific Antigen 0.63 ng/mL (<0.05-4.0)
== END 2024-04-11 14:22 | disposition home or self-care (01) ==
LOC: HO.HMGCLDS 14:21
PROVIDERS: PCP Internal Medicine; Visit Provider Nurse Practitioner Family
DX: N40.0 Benign prostatic hyperplasia without lower urinary tract symptoms (principal)
CPT/HCPCS: 36415; 84153

== ENCOUNTER 2024-04-13 08:14 | Outpatient (REF) | payer BC, SELFPAY ==
[2024-04-13 10:25] LABS: Appearance Urine Clear; Color Urine Yellow; Glucose Urine UA Negative (Negative); Leukocyte Esterase Urine Negative (Negative); Nitrite Urine Negative (Negative); Urine Blood Negative (Negative); Urine Ketones Negative (Negative); Urine Protein Negative (Neg-Trace)
[2024-04-13 10:57] LABS: Creatinine Urine 193.82 mg/dL; Total Protein Urine Random 12 mg/dL (<12)
[2024-04-13 11:42] LABS: Anion Gap 16 (12-20); Blood Urea Nitrogen 17 mg/dL (9-16); Calcium 9.5 mg/dL (8.4-10.2); Carbon Dioxide 24 mmol/L (22-29); Chloride 105 mmol/L (96-108); Estimated Glomerular Filt Rate > 60; Glucose Random 112 mg/dL (60-115); Potassium 4.5 mmol/L (3.3-5.1); Sodium 140 mmol/L (135-145)
== END 2024-04-13 08:15 | disposition home or self-care (01) ==
LOC: HO.HMGCLDS 08:14
PROVIDERS: PCP Internal Medicine; Visit Provider Internal Medicine Hypertension Specialist
DX: R80.9 Proteinuria, unspecified (principal); I10 Essential (primary) hypertension
CPT/HCPCS: 36415; 80048; 81003; 82570; 84156

== ENCOUNTER 2024-04-20 14:44 | Outpatient (AMB) | payer BC, SELFPAY ==
--- NOTE | 2024-04-20 15:03 | HO.NEPHOV_ITS ---
Vital Signs 04/20/24 15:04 Height 5 ft 5 in Weight 173 lb 8 oz BMI 28.9 BP 108/60 Blood Pressure Location Rt brachial Position Sitting Pulse 87 Pulse Source Pulse Oximeter Pulse Oximetry (%) 97 Oxygen Delivery Method Room Air Intake Visit Reasons: 6 mo fu w labs -CKD- Conf Watch Assembly Inspector Required: No Accompanied by: Self / Same As Patient Allergies dust and pollen Allergy (Unknown, Verified 04/20/24 15:06) unknown HPI Comments Details: I had the privilege of seeing Mr. Rahman in follow-up of his hypertension and proteinuria. His brother and sister had in [facility] at a young age from ESRD likely from [place] nephropathy. He is tolerating his medicat ions. His blood pressure has been at goal. He denies any skin rash, hematuria, edema or orthostatic symptoms. He claims to be compliant with his medications. He avoids nonsteroidal anti-inflammatories and maintains good hydration. There were no new active issues at the time of this office visit [facility] Medical History Elevated PSA, between 10 and less than 20 ng/ml Prostatitis Elevated PSA Anemia Acute prostatitis History of COVID-19 Mixed dyslipidemia Family history of kidney disease Essential hypertension Microalbuminuria Impaired fasting glucose Hypertriglyceridemia Surgical History No pertinent past surgical history Family History Father HTN (hypertension) Stroke Mother Diabetes mellitus HTN (hypertension) Brother Kidney failure Maternal Grandmother Unknown family medical history Sister Breast cancer Son No problems noted. Social History Housing: House Alcohol intake: current Alcohol intake frequency: a few times a week Alcohol type: beer Patient Tobacco Use Status: Never used Tobacco e-Cigarette/Vaping Use: Never Used Second Hand Smoke Exposure: No service: No Current occupational status: employed Cognitive needs: No Hearing needs: No Vision needs: No Review of Systems Const All systems reviewed & are unremarkable except as noted in HPI and below Physical Exam Vital Signs: Last Vital Signs Pulse 87 04/20/24 15:04 BP 108/60 04/20/24 15:04 Pulse Ox 97 04/20/24 15:04 Oxygen Delivery Method Room Air 04/20/24 15:04 BMI result Body Mass Index 28.9 Const General: comfortable and no acute distress Orientation/consciousness: patient oriented x3 HEENT Head: Yes normocephalic Mouth: Normal oral and palatal mucosa present Eyes EOM: EOMs intact bilaterally Neck Neck: Yes supple Resp Auscultation: clear to auscultation bilaterally Cardio Jugular venous distension: no JVD Rate: regular rate GI Palpation (GI): Soft to palpation Auscultation: normal bowel sounds General: Yes no CVA tenderness Back/Spine/Pelvis Back: no CVA tenderness Skin General skin exam: no rashes or lesions noted Neuro General: patient oriented x3 and moves all extremities Extrem General: Yes no pedal edema Results Reviewed Nephrology Results: Sodium 140 mmol/L (135-145) 04/13/24 Potassium 4.5 mmol/L (3.3-5.1) 04/13/24 Chloride 105 mmol/L (96-108) 04/13/24 Carbon Dioxide 24 mmol/L (22-29) 04/13/24 BUN 17 mg/dL (9-16) H 04/13/24 Creatinine 0.86 mg/dL (0.5-1.4) 04/13/24 Calcium 9.5 mg/dL (8.4-10.2) 04/13/24 Urine Protein Negative mg/dL (Neg-Trace) 04/13/24 Urine Creatinine 193.82 mg/dL 04/13/24 Protein/Creatinin Ratio 0.10 (<0.2) 12/10/23 Assessment & Plan Assessment & Plan (1) Proteinuria: Code(s): R80.9 - Proteinuria, unspecified Category: Medical Qualifiers: Proteinuria type: other Qualified Code(s): R80.8 - Other proteinuria Plan Miguel had proteinuria for a while. His family has a history of [place] nephropathy. His proteinuria is not detectable on IRWIN-inhibitor. His blood pressure has been at goal. His renal functions are normal. He has no hematuria. There is no indication for any renal biopsy now. He avoids nonsteroidal anti-inflammatories and maintain good hydration. He is on statins. I did not make any medication changes today. Follow-up lab work ordered. Answered all questions Orders: Orders Creatinine Today R80.8 - Other proteinuria Blood Urea Nitrogen Today R80.8 - Other proteinuria Electrolytes Today R80.8 - Other proteinuria Protein Creatinine Ratio, Ur Today R80.8 - Other proteinuria Coding Level of Care Code Est Pt Level 4 (63256) Diagnoses Other proteinuria R80.8 Proteinuria type: other
[2024-04-20 15:04] VITALS: BP 108/60; PULSE 87; O2SAT 97; BMI 28.9
== END 2024-04-20 15:36 | disposition home or self-care (01) ==
PROVIDERS: PCP Internal Medicine; Visit Provider Internal Medicine Nephrology
DX: R80.8 Other proteinuria (principal)
CPT/HCPCS: 99214

== ENCOUNTER → 2024-04-20 14:44 | Outpatient (BNVA) | payer BC, SELFPAY | PROVIDERS: PCP Internal Medicine; Visit Provider Internal Medicine Nephrology ==

== ENCOUNTER 2024-04-28 09:10 | Outpatient (AMB) | payer BC, SELFPAY ==
[2024-04-28 09:14] VITALS: BP 128/84; PULSE 76; O2SAT 99; BMI 28.5
--- NOTE | 2024-04-28 09:14 | A.OFFPC_ITS ---
Vital Signs 04/28/24 09:14 Height 5 ft 5 in Weight 171 lb BMI 28.5 BP 128/84 Blood Pressure Location Rt brachial Position Sitting Pulse 76 Pulse Source Pulse Oximeter Pulse Oximetry (%) 99 Oxygen Delivery Method Room Air Intake Visit Reasons: Received a letter he need to schedule an appt Intake Note: Pt is here today to discuss recent lab results Allergies dust and pollen Allergy (Unknown, Verified 04/28/24 09:30) unknown Medication List - Last Reconciled 04/28/24 by Yu Sorto MD lisinopril 40 mg PO DAILY rosuvastatin 10 mg PO DAILY Tobacco use date assessed: 04/28/24 Dental Screening Dental Screen Date: 04/28/24 Did you have a dental visit in the last 12 months?: Yes Did you have a dental problem in the last 6 months where you did not have access to dental care?: No Was dental information given to patient?: Patient has dentist HPI Received a letter he need to schedule an appt HPI Details 48-year-old male with hypertension and h ypertriglyceridemia, as well as elevated liver enzymes on last draw, here today for follow-up. He is currently followed by Nephrology, currently on lisinopril 40 mg daily. He also takes rosuvastatin 10 mg daily for hypertriglyceridemia, and has been running daily for exercise. Patient however states that he just got back from a vacation 2 weeks ago and has been off his diet. He has been feeling well with no complaints at present time [facility] Medical History Hx of prostatitis Elevated liver enzymes History of COVID-19 Family history of kidney disease Essential hypertension Microalbuminuria Impaired fasting glucose Surgical History No pertinent past surgical history Family History Father HTN (hypertension) Stroke Mother Diabetes mellitus HTN (hypertension) Brother Kidney failure Maternal Grandmother Unknown family medical history Sister Breast cancer Son No problems noted. Social History Housing: House Alcohol intake: current Alcohol intake frequency: a few times a week Alcohol type: beer Patient Tobacco Use Status: Never used Tobacco e-Cigarette/Vaping Use: Never Used Second Hand Smoke Exposure: No service: No Current occupational status: employed Cognitive needs: No Hearing needs: No Vision needs: No Questionnaire PHQ-9 Over the last 2 weeks, how often have you been bothered by any of the following problems? 1. Little interest or pleasure in doing things: not at all 2. Feeling down, depressed, or hopeless: not at all 3. Trouble falling or staying asleep, or sleeping too much: not at all 4. Feeling tired or having little energy: not at all 5. Poor appetite or overeating: not at all 6. Feeling bad about yourself - or that you are a failure or have let yourself or your family down: not at all 7. Trouble concentrating on things, such as reading the newspaper or watching television: not at all 8. Moving or speaking so slowly that other people could have noticed. Or the opposite - being so fidgety or restless that you have been moving around a lot more than usual: not at all 9. Thoughts that you would be better off or of hurting yourself in some way: not at all Total score: 0 Depression Screening Interpretation: Negative Depression Screening Done: Yes 21562 - PHQ-9 Billing: Yes Source: Developed by Drs. Ash Haas, Deisy Porter, Anthony Ruiz and colleagues, with an educational nigel from [email or web address]. Thrive Questionnaire Date Thrive assessed: 04/28/24 I am a: Patient What is your living situation today?: I choose not to answer this question Within the past 12 months, did the food you bought not last and you didn't have the money to get more?: I choose not to answer this question Within the past 12 months, did you worry whether your food would run out before you got money to buy more?: I choose not to answer this question Do you have trouble paying for medicines?: I choose not to answer this question Do you have trouble getting transportation to medical appointments?: I choose not to answer this question Do you have trouble paying your heating and electricity bill?: I choose not to answer this question Do you have trouble taking care of your child, family member or friend?: I choose not to answer this question Do you have trouble with day-to-day activities such as bathing, preparing meals, shopping, managing finances, etc.?: I choose not to answer this question Are you currently unemployed and looking for a job?: I choose not to answer this question Are you interested in more education?: I choose not to answer this question Please select the resources that you would like help with: None Currently or been in a relationship where the following occur: I choose not to answer THRIVE Score: 0 AUDIT C Alcohol Use Questionnaire (AUDIT-C) 1. How often do you have a drink containing alcohol?: Never Total Score: 0 DUTCH-7 AMB Questionnaire DUTCH-7 Date DUTCH - 7 assessed: 05/13/23 Feeling nervous, anxious, or on edge: 0 = Not at all Not being able to stop or control worryin = Not at all Worrying too much about different things: 0 = Not at all Trouble relaxin = Not at all Being so restless that it is hard to sit still: 0 = Not at all Becoming easily annoyed or irritable: 0 = Not at all Feeling afraid as if something awful might happen: 0 = Not at all Total DUTCH-7 score (0-4 normal; 5-9 mild; 10-14 moderate; 15-21 severe): 0 Source: Developed by Drs. Ash Haas, Deisy Porter, Anthony Ruiz and colleagues, with an educational nigel from [email or web address]. DUTCH-7 Assessment Billing DUTCH-7 Assessment Tool: DUTCH-7 Assessment 68297 Review of Systems Const All systems reviewed & are unremarkable except as noted in HPI and below Eyes Reports no additional complaints ENT Reports no additional complaints Card Reports no additional complaints Resp Reports no additional complaints GI Reports no additional complaints Musc Reports no additional complaints Skin/Breast Denies lesions and Denies rash Neuro Reports no additional complaints Psych Reports no additional complaints Endo Reports no additional complaints Otf/Lymph Reports no additional complaints Aller/Immun Reports no additional complaints Physical exam (Primary Care) Vital Signs: Last Vital Signs Pulse 76 04/28/24 09:14 BP 128/84 04/28/24 09:14 Pulse Ox 99 04/28/24 09:14 Oxygen Delivery Method Room Air 04/28/24 09:14 BMI result Body Mass Index 28.5 Tobacco/Smoking Status: Tobacco use Status Tobacco use date assessed 04/28/24 04/28/24 09:20 Patient Tobacco Use Status Never used Tobacco 04/28/24 09:15 e-Cigarette/Vaping Use Never Used 04/28/24 09:15 PHQ-9: PHQ-9 Score PHQ-9: Total score 0 04/28/24 09:42 Depression Screening Interpretation: Negative Thrive Assessment: Date of Thrive Assessment Date Thrive assessed 04/28/24 04/28/24 09:20 Currently or been in a relationship where the following occur: I choose not to answer Const General: healthy appearing, comfortable and no acute distress Orientation/consciousness: patient oriented x3 HENMT Head: Yes normocephalic and Yes atraumatic Face and sinus: Yes face symmetric Mouth: Normal oral and palatal mucosa present Eyes General: appearance normal, both eyes and all related structures Neck Neck: Yes full ROM, Yes no lymphadenopathy and Yes supple Resp Auscultation: clear to auscultation bilaterally Cardio Rate: regular rate Rhythm: regular rhythm Heart sounds: S1 normal heart sound present and S2 normal heart sound present GI Palpation (GI): Soft to palpation, nontender, no guarding and no masses Neuro General: patient oriented x3, gait normal, moves all extremities and no focal motor deficits Cognition (Neuro): normal cognition Extrem General: Yes full ROM, Yes no joint enlargement, Yes no clubbing, cyanosis or edema, Yes no pedal edema, Yes no calf tenderness and Yes normal gait Results AMB Hemoglobin A1c AMB Hemoglobin A1c 5.8 % Last Edit by Candice Trevino CMA on 04/28/24 09:37 Results Reviewed Results Reviewed: Laboratory Last Values Hgb A1c (Clinic) 5.8 % (4.0-6.0) 04/28/24 09:22 Assessment and Plan Assessment & Plan (1) Impaired fasting glucose: Code(s): R73.01 - Impaired fasting glucose Plan: Your previous fasting blood sugars were elevated above 100 mg/dL. Impaired glucose metabolism increases the risk for developing diabetes mellitus type 2, as well as heart attack and stroke later on. Lifestyle changes that promotes weight loss, healthy eating habits, and regular exercise are important, and can prevent the progression to diabetes (2) Elevated liver enzymes: Code(s): R74.8 - Abnormal levels of other serum enzymes Plan: Ordered comprehensive metabolic panel (3) Mixed dyslipidemia: Code(s): E78.2 - Mixed hyperlipidemia Plan: Continue with rosuvastatin 10 mg once daily, encouraged to follow recommended low-cholesterol diet and continue with regular exercise. Fasting lipids ordered Orders: Orders AMB Hemoglobin A1c Today R73.01 - Impaired fasting glucose Lipid Panel Today E78.1 - Pure hyperglyceridemia, I10 - Essential (primary) hypertension, R73.01 - Impaired fasting glucose, R74.8 - Abnormal levels of other serum enzymes Hemoglobin A1c Today E78.1 - Pure hyperglyceridemia, I10 - Essential (primary) hypertension, R73.01 - Impaired fasting glucose, R74.8 - Abnormal levels of other serum enzymes Comprehensive [place]. Panel Fast Today E78.1 - Pure hyperglyceridemia, I10 - Essential (primary) hypertension, R73.01 - Impaired fasting glucose, R74.8 - Abnormal levels of other serum enzymes Coding Level of Care Code Est Pt Level 4 (70348) Complex EM visit Add On G2211 Diagnoses Impaired fasting glucose R73.01 Elevated liver enzymes R74.8 Mixed dyslipidemia E78.2 Additional Codes DUTCH-7 Assessment Billing - DUTCH-7 Assessment Tool: DUTCH-7 Assessment 30762 ([id number])
== END 2024-04-28 09:43 | disposition home or self-care (01) ==
PROVIDERS: PCP Internal Medicine; Visit Provider Internal Medicine
DX: R73.01 Impaired fasting glucose (principal); R74.8 Abnormal levels of other serum enzymes; E78.2 Mixed hyperlipidemia
CPT/HCPCS: 83036; 99214

== ENCOUNTER 2024-04-28 09:43 | Outpatient (REF) | payer BC, SELFPAY ==
[2024-04-28 13:44] LABS: Estimated Average Glucose 120 mg/dL; Hemoglobin A1c % 5.8 % (<6.0)
[2024-04-28 13:52] LABS: Alanine Aminotransferase 49 U/L (0-40); Albumin Level 4.5 g/dL (3.5-5.0); Alkaline Phosphatase 75 U/L (39-117); Anion Gap 12 (12-20); Aspartate Amino Transferase 37 U/L (5-37); Bilirubin Total 0.8 mg/dL (0.0-1.0); Blood Urea Nitrogen 13 mg/dL (9-16); Calcium 9.9 mg/dL (8.4-10.2); Carbon Dioxide 29 mmol/L (22-29); Chloride 104 mmol/L (96-108); Cholesterol 183 mg/dL (<200); Estimated Glomerular Filt Rate > 60; Glucose Fasting 102 mg/dL (60-99); HDL Cholesterol 45 mg/dL (>40); LDL Cholesterol Calculated 106 mg/dL (<100); Potassium 4.7 mmol/L (3.3-5.1); Sodium 140 mmol/L (135-145); Total Protein 7.4 g/dL (6.5-8.0); Triglycerides 163 mg/dL (<150)
== END 2024-04-28 09:44 | disposition home or self-care (01) ==
LOC: HO.HMGCLDS 09:43
PROVIDERS: Internal Medicine; PCP Internal Medicine; Visit Provider Internal Medicine
DX: R73.01 Impaired fasting glucose (principal); I10 Essential (primary) hypertension; E78.1 Pure hyperglyceridemia; R74.8 Abnormal levels of other serum enzymes
CPT/HCPCS: 36415; 80053; 80061; 83036

== ENCOUNTER 2024-08-11 09:19 | Outpatient (REF) | payer BC, SELFPAY ==
[2024-08-11 13:33] LABS: Alanine Aminotransferase 55 U/L (0-40); Anion Gap 9 (12-20); Aspartate Amino Transferase 34 U/L (5-37); Blood Urea Nitrogen 19 mg/dL (9-16); Calcium 8.7 mg/dL (8.4-10.2); Carbon Dioxide 26 mmol/L (22-29); Chloride 108 mmol/L (96-108); Cholesterol 186 mg/dL (<200); Estimated Glomerular Filt Rate > 60; Glucose Fasting 116 mg/dL (60-99); HDL Cholesterol 41 mg/dL (>40); LDL Cholesterol Calculated 114 mg/dL (<100); Potassium 4.1 mmol/L (3.3-5.1); Sodium 139 mmol/L (135-145); Triglycerides 158 mg/dL (<150)
== END 2024-08-11 09:20 | disposition home or self-care (01) ==
LOC: HO.HMGCLDS 09:19
PROVIDERS: PCP Internal Medicine; Visit Provider Internal Medicine
DX: Z00.00 Encounter for general adult medical examination without abnormal findings (principal); I10 Essential (primary) hypertension; E78.2 Mixed hyperlipidemia; R80.8 Other proteinuria; Z79.899 Other long term (current) drug therapy; Z71.89 Other specified counseling
CPT/HCPCS: 36415; 80048; 80061; 84450; 84460; 96127

== ENCOUNTER 2024-08-11 09:19 | Outpatient (AMB) | payer BC, SELFPAY ==
[2024-08-11 09:24] VITALS: BP 110/80; PULSE 67; O2SAT 100; BMI 28.8
--- NOTE | 2024-08-11 09:24 | MHC.PC.OV ---
Vital Signs 08/11/24 09:24 Height 5 ft 5 in Weight 173 lb BMI 28.8 BP 110/80 Blood Pressure Location Rt brachial Position Sitting Pulse 67 Pulse Source Pulse Oximeter Pulse Oximetry (%) 100 Oxygen Delivery Method Room Air Intake Visit Reasons: Physical exam Intake Note: Pt is here today for his PE Allergies dust and pollen Allergy (Unknown, Verified 08/11/24 09:37) unknown Medication List - Last Reconciled 08/11/24 by Yu Sorto MD lisinopril 40 mg PO DAILY rosuvastatin 10 mg PO DAILY Tobacco use date assessed: 08/11/24 Dental Screening Dental Screen Date: 04/28/24 Did you have a dental visit in the last 12 months?: Yes Did you have a dental problem in the last 6 months where you did not have access to dental care?: No Was dental information given to patient?: Patient has dentist HPI HPI Comments History of Present Illness Details 48 year-old male with hypertension and hypertriglyceridemia, here today for his physical exam. He is currently followed by Nephrology, currently on lisinopril 40 mg daily with blood pressure well controlled on present treatment.. He also takes rosuvastatin 10 mg daily for treatment of mixed dyslipidemia. Has been compliant with recommended diet and once daily for exercise . He has prediabetes with last hemoglobin A1c at 5.4% last 04/2024. Has been feeling well with no complaints at present time [facility] Medical History Hx of prostatitis Elevated liver enzymes History of COVID-19 Family history of kidney disease Essential hypertension Microalbuminuria Impaired fasting glucose Surgical History No pertinent past surgical history Family History Father HTN (hypertension) Stroke Mother Diabetes mellitus HTN (hypertension) Brother Kidney failure Maternal Grandmother Unknown family medical history Sister Breast cancer Son No problems noted. Social History Housing: House Alcohol intake: current Alcohol intake frequency: a few times a week Alcohol type: beer Patient Tobacco Use Status: Never used Tobacco e-Cigarette/Vaping Use: Never Used Second Hand Smoke Exposure: No service: No Current occupational status: employed Cognitive needs: No Hearing needs: No Vision needs: Yes Questionnaire PHQ-9 Over the last 2 weeks, how often have you been bothered by any of the following problems? Depression Screening Interpretation: Negative Depression Screening Done: Yes Source: Developed by Drs. Ash Haas, Deisy Porter, Anthony Ruiz and colleagues, with an educational nigel from [employer]. Thrive Questionnaire Date Thrive assessed: 04/28/24 I am a: Patient What is your living situation today?: I choose not to answer this question Within the past 12 months, did the food you bought not last and you didn't have the money to get more?: I choose not to answer this question Within the past 12 months, did you worry whether your food would run out before you got money to buy more?: I choose not to answer this question Do you have trouble paying for medicines?: I choose not to answer this question Do you have trouble getting transportation to medical appointments?: I choose not to answer this question Do you have trouble paying your heating and electricity bill?: I choose not to answer this question Do you have trouble taking care of your child, family member or friend?: I choose not to answer this question Do you have trouble with day-to-day activities such as bathing, preparing meals, shopping, managing finances, etc.?: I choose not to answer this question Are you currently unemployed and looking for a job?: I choose not to answer this question Are you interested in more education?: I choose not to answer this question Please select the resources that you would like help with: None Currently or been in a relationship where the following occur: I choose not to answer THRIVE Score: 0 DUTCH-7 AMB Questionnaire DUTCH-7 Date DUTCH - 7 assessed: 08/11/24 Feeling nervous, anxious, or on edge: 0 = Not at all Not being able to stop or control worryin = Not at all Worrying too much about different things: 0 = Not at all Trouble relaxin = Not at all Being so restless that it is hard to sit still: 0 = Not at all Becoming easily annoyed or irritable: 0 = Not at all Feeling afraid as if something awful might happen: 0 = Not at all Total DUTCH-7 score (0-4 normal; 5-9 mild; 10-14 moderate; 15-21 severe): 0 Source: Developed by Drs. Ash Haas, Deisy Porter, Anthony Ruiz and colleagues, with an educational nigel from [employer]. DUTCH-7 Assessment Billing DUTCH-7 Assessment Tool: DUTCH-7 Assessment 31594 Review of Systems Const Reports no additional complaints Eyes Details: had recent eye exam in [place] , now using reading glasses Reports no additional complaints ENT Reports no additional complaints Card Reports no additional complaints Resp Reports no additional complaints GI Reports no additional complaints Reports no additional complaints Musc Reports no additional complaints Skin/Breast Denies lesions and Denies rash Neuro Reports no additional complaints Psych Reports no additional complaints Endo Reports no additional complaints Otf/Lymph Reports no additional complaints Aller/Immun Reports no additional complaints Physical exam (Primary Care) Vital Signs: Last Vital Signs Pulse 67 08/11/24 09:24 BP 110/80 08/11/24 09:24 Pulse Ox 100 08/11/24 09:24 Oxygen Delivery Method Room Air 08/11/24 09:24 BMI result Body Mass Index 28.8 Tobacco/Smoking Status: Tobacco use Status Tobacco use date assessed 08/11/24 12 09:30 Patient Tobacco Use Status Never used Tobacco 08/11/24 09:26 e-Cigarette/Vaping Use Never Used 08/11/24 09:26 Depression Screening Interpretation: Negative Thrive Assessment: Date of Thrive Assessment Date Thrive assessed 04/28/24 08/11/24 09:26 Currently or been in a relationship where the following occur: I choose not to answer Const General: healthy appearing, comfortable and no acute distress Orientation/consciousness: patient oriented x3 HENMT Head: Yes normocephalic and Yes atraumatic Face and sinus: Yes face symmetric Mouth: Normal oral and palatal mucosa present Eyes General: appearance normal, both eyes and all related structures Neck Neck: Yes full ROM, Yes no lymphadenopathy and Yes supple Chest Chest palpation & inspection: normal inspection of the chest Resp Auscultation: clear to auscultation bilaterally Cardio Rate: regular rate Rhythm: regular rhythm Heart sounds: S1 normal heart sound present and S2 normal heart sound present GI Palpation (GI): Soft to palpation, nontender, no guarding and no masses General: Yes no CVA tenderness Back/Spine/Pelvis Back: no CVA tenderness and No back tenderness Thoracic/Lumbar Spine: thoraco-lumbar ROM normal Skin General skin exam: no rashes or lesions noted Neuro General: patient oriented x3, gait normal, moves all extremities and no focal motor deficits Cognition (Neuro): normal cognition Extrem General: Yes full ROM, Yes no joint enlargement, Yes no clubbing, cyanosis or edema, Yes no pedal edema, Yes no calf tenderness and Yes normal gait Psych Appearance: grossly normal and well kempt Mental Status: mental status grossly normal Speech and movement: Normal speech and movement present Affect: normal affect Coding Level of Care Code Est Pt Prev Care 40-64y(93219) Diagnoses Annual visit for general adult medical examination with abnormal findings Z00.01 Essential hypertension I10 Mixed dyslipidemia E78.2 Encounter for screening for malignant neoplasm of colon Z12.11 Other proteinuria R80.8 Proteinuria type: other Advanced directives, counseling/discussion Z71.89 Additional Codes DUTCH-7 Assessment Billing - DUTCH-7 Assessment Tool: DUTCH-7 Assessment 89167 ([id number]) Assessment & Plan Assessment & Plan (1) Annual visit for general adult medical examination with abnormal findings: Code(s): Z00.01 - Encounter for general adult medical examination with abnormal findings Plan: Will check appropriate labs. Continue regular dental visit every 6 months and regular eye exams, at least every 2 years. Take adequate calcium in diet and vitamin-D 3 at 2000 IU per cap once a day, in addition to weight-bearing exercises to help maintain good muscle tone and weight control. Instructed to do self-testicular exam check for any mass. Up-to-date with all his vaccines. Referral for colon cancer screening initiated (2) Essential hypertension: Code(s): I10 - Essential (primary) hypertension Category: Medical Plan: Blood pressure at goal of less than 130/80. Continue with lisinopril 40 mg daily, followed by Nephrology. Reinforced importance of following a low sodium diet, avoidance of NSAIDs, getting regular exercise, and lowering stress levels. (3) Mixed dyslipidemia: Code(s): E78.2 - Mixed hyperlipidemia Category: Medical Plan: Fasting lipid panel ordered, continued on rosuvastatin 10 mg daily (4) Encounter for screening for malignant neoplasm of colon: Code(s): Z12.11 - Encounter for screening for malignant neoplasm of colon Plan: Referred to GI for initial screening colon cancer screening (5) Proteinuria: Code(s): R80.9 - Proteinuria, unspecified Category: Medical Qualifiers: Proteinuria type: other Qualified Code(s): R80.8 - Other proteinuria Plan: followed by nephrology. His family has a history of [place] nephropathy. His proteinuria is not detectable on IRWIN-inhibitor. His blood pressure has been at goal. His renal functions are normal. He has no hematuria. There is no indication for any renal biopsy now. He avoids nonsteroidal anti-inflammatories and maintain good hydration. (6) Advanced directives, counseling/discussion: Code(s): Z71.89 - Other specified counseling Plan: Initiated the conversation about Advanced Directives. Advanced Directives help patients prepare for current and future decisions about their medical treatment and place of care. Discussed with patient that it is a process where a patients current condition and prognosis are reviewed, their wishes for information regarding their illness are elicited, and likely medical dilemmas are presented and options discussed. Health care proxy form completed. The form can be amended as needed, reviewed yearly and make changes as needed Orders: Orders Alanine Aminotransferase 08/11/24 E78.2 - Mixed hyperlipidemia, I10 - Essential (primary) hypertension Aspartate Amino Transferase 08/11/24 E78.2 - Mixed hyperlipidemia, I10 - Essential (primary) hypertension Basic Metabolic Panel Fasting 08/11/24 E78.2 - Mixed hyperlipidemia, I10 - Essential (primary) hypertension Lipid Panel 08/11/24 E78.2 - Mixed hyperlipidemia, I10 - Essential (primary) hypertension Referrals Gastroenterology Referral Z12.11 - Encounter for screening for malignant neoplasm of colon
== END 2024-08-11 09:58 | disposition home or self-care (01) ==
PROVIDERS: PCP Internal Medicine; Visit Provider Internal Medicine
DX: Z00.01 Encounter for general adult medical examination with abnormal findings (principal); I10 Essential (primary) hypertension; E78.2 Mixed hyperlipidemia; Z12.11 Encounter for screening for malignant neoplasm of colon; R80.8 Other proteinuria; Z71.89 Other specified counseling

== ENCOUNTER 2025-01-24 09:06 | Outpatient (REF) | payer BC, SELFPAY ==
--- OUTSIDE RECORDS SUMMARY | 2025-01-24 09:51 | XMS_ITS ---
Author Name [facility] Organization Unknown Care Team Organization Name Specialty Phone Email Start Date End Da te [employer] 10/01/2023
[2025-01-24 10:45] LABS: Anion Gap 11 (12-20); Blood Urea Nitrogen 14 mg/dL (9-16); Carbon Dioxide 27 mmol/L (22-29); Chloride 107 mmol/L (96-108); Estimated Glomerular Filt Rate > 60; Potassium 4.2 mmol/L (3.3-5.1); Sodium 141 mmol/L (135-145)
[2025-01-24 11:20] LABS: Creatinine Urine 134.96 mg/dL; Total Protein Urine Random < 7 mg/dL (<12)
== END 2025-01-24 09:07 | disposition home or self-care (01) ==
LOC: HO.HMGCLDS 09:06
PROVIDERS: PCP Internal Medicine; Referring Provider Internal Medicine Nephrology; Visit Provider Nurse Practitioner Family
DX: R80.8 Other proteinuria (principal); Z12.5 Encounter for screening for malignant neoplasm of prostate
CPT/HCPCS: 36415; 80051; 82565; 82570; 84153; 84156; 84520

== ENCOUNTER 2025-01-31 16:21 | Outpatient (AMB) | payer BC, SELFPAY ==
--- NOTE | 2025-01-31 16:21 | MHC.OFFVIS ---
Intake Visit Reasons: 1y/PSA(set) Intake Note: Patient is present via telehealth for 1y follow up Urology Medications: none Blood Thinner: none Software Applications Architect Required: No Accompanied by: Self / Same As Patient Allergies dust and pollen Allergy (Unknown, Verified 01/31/25 20:47) unknown Medication List - Last Reconciled 01/31/25 by VERONICA Johnson lisinopril 40 mg PO DAILY rosuvastatin 10 mg PO DAILY HPI Comments Details: Miguel is a very pleasant 49 year-old male patient of Dr. Sorto. He has a past medical history of prostatitis, hypertension, anemia, and mixed dyslipidemia. He is being followed up on today via video telehealth for his history of prostatitis and elevated PSA. In discussion with the patient today reports to be doing and feeling well. He does note over the last year since his last office visit he has had intermittent episodes of dysuria and urinary urgency however feels these symptoms are self-limiting. He currently denies any bothersome urinary issues or concerns. Recent PSA results were reviewed with the patient today as noted and trended below. He denies urinary urgency, incontinence, nocturia, hematuria, foul smelling urine, changes to urinary stream, flank pain, fever, and or chills. PSAs are as follows.... PSA 09/08 26.9, 10/09 7.7, 03/08 0.8, 12/08 0.6, 02/08 0.8 We discussed potential causes of lower urinary tract symptoms patient experiences from time to time. I discussed and stressed the importance of drinking plenty of fluid daily. He discusses following up with Nephrology. He otherwise denies any bothersome issues or concerns at this time. [facility] Medical History Hx of prostatitis Elevated liver enzymes History of COVID-19 Family history of kidney disease Essential hypertension Microalbuminuria Impaired fasting glucose Surgical History No pertinent past surgical history Family History Father HTN (hypertension) Stroke Mother Diabetes mellitus HTN (hypertension) Brother Kidney failure Maternal Grandmother Unknown family medical history Sister Breast cancer Son No problems noted. Social History Housing: House Alcohol intake: current Alcohol intake frequency: a few times a week Alcohol type: beer Patient Tobacco Use Status: Never used Tobacco e-Cigarette/Vaping Use: Never Used Second Hand Smoke Exposure: No service: No Current occupational status: employed Cognitive needs: No Hearing needs: No Vision needs: Yes Review of Systems Const Reports no additional complaints Eyes Reports no additional complaints ENT Reports no additional complaints Card Reports as per HPI Resp Reports no additional complaints Reports as per HPI Musc Reports no additional complaints Neuro Reports no additional complaints Psych Reports no additional complaints Endo Reports no additional complaints Otf/Lymph Reports as per HPI Physical Exam Const General: cooperative, healthy appearing, comfortable, no acute distress, well developed, alert and awake Orientation/consciousness: patient oriented x3 Resp Effort & Inspection: normal respiratory effort and able to speak in complete sentences Neuro General: patient oriented x3 Psych Appearance: grossly normal and well kempt Speech and movement: Clear speech present Affect: normal affect Attitude: cooperative Thought process: Normal thought process present Thought content: Normal thought content present Insight: Fair insight present (Psych) Judgement: Fair judgement present (Psych) Telehealth Telehealth Telehealth Platform: [employer] Location of provider rendering services: practice address Location of patient: address on file Patient Identification confirmed using: Name, : Yes Telehealth method: video Patient verbally consented to treatment: Yes Patient verbally consented to billing insurance company: Yes Patient informed of any privacy concerns related to visit: Yes Minutes spent on Phone/Video with Pt.: 15 Assessment & Plan Assessment & Plan (1) Elevated PSA: Code(s): R97.20 - Elevated prostate specific antigen [PSA] Category: Medical Plan Recent PSA results reviewed with the patient today; as noted above. He reports be happy with current voiding parameters. He currently denies any bothersome urinary issues or concerns. Will continue with surveillance monitoring. We discussed the importance of adequate hydration relation to lower urinary tract symptoms as well as overall health and well-being. Will obtain PSA in 1 year. Follow-up in 1 year with PSA; or sooner with any issues, concerns, or questions. Orders: Orders Prostate Specific Antigen 1 Year R97.20 - Elevated prostate specific antigen [PSA] Patient Instructions: The patient had an opportunity to ask questions regarding the treatment plan. All questions were answered. Physical exam, labs, and imaging were discussed and reviewed in detail. As well as risks, benefits, and discussion of treatment choices. No major barriers to understanding were identified. The patient expressed understanding and agreement with the above treatment plan. The patient was made aware they should contact our office by phone for worsening of their current condition, the appearance of new symptoms, or with any questions or concerns. Compliance is encouraged with any medications and follow up testing that is ordered. It is a privilege to be allowed the opportunity to participate in? your urological care.? Again, if you have any questions or concerns If you have any questions or concerns please do not hesitate to contact me. The office is [phone]. This note is constructed using voice recognition software. While every effort has been made to ensure accuracy picker errors may have been included. Yours sincerely, RASHEED Johnson Coding Level of Care Code Tele Est Pt Level 3 (05301) Diagnoses Elevated PSA R97.20
--- OUTSIDE RECORDS SUMMARY | 2025-01-31 18:33 | XMS_ITS | Encounter Summary ---
Author Organization [facility] Address [address] [facility] [address] [place] [address] Phone Care Team Providers Care Cosmetics Presser Name Role Phone Gucci Sorto MD Primary Care Provider [phone]- [phone] Reason for Visit * Reason Onset Date Comments Med Refill 04/17/2024 Encounter Details Date Type Department Care Team (Late st Contact Info) Description 04/17/2024 [facility]ill [facility] [address] [place] [address] Ayo Farris MD [address] [facility] [address] [place] [id number] Social History Tobacco Use Types Packs/Day Years Used Date Smoking Tobacco: Never Smokeless Tobacco: Never Alcohol Use Standard Drinks/Week Comments Never 0 (1 standard drink = 0.6 oz pur e alcohol) Sex and Gender Information Value Date Recorded Sex Assigned at Male 04/15/2023 9:22 AM EDT Legal Sex Male 4:09 PM EDT Gender Identity Male 04/15/2023 9:22 AM EDT Sexual Orientation Not on file documented as of this encounter Plan of Treatment Not on file documented as of this encounter Visit Diagnoses Not on filedocumented in this encounter Care Teams Cosmetics Presser Relationship Specialty Start Date End Date Gucci Sorto MD [address] [place] [address] PCP - General Internal Medicine 11/13/20 documented as of this encounter
== END 2025-01-31 16:34 | disposition home or self-care (01) ==
LOC: HO.HUSH 16:21
PROVIDERS: PCP Internal Medicine; Visit Provider Nurse Practitioner Family
DX: R97.20 Elevated prostate specific antigen [PSA] (principal)
CPT/HCPCS: 99213

== ENCOUNTER → 2025-01-31 16:21 | Outpatient (BNVA) | payer BC, SELFPAY | PROVIDERS: PCP Internal Medicine; Visit Provider Nurse Practitioner Family ==

== ENCOUNTER 2025-03-08 14:13 | Outpatient (AMB) | payer BC, SELFPAY ==
[2025-03-08 14:18] VITALS: BP 110/74; PULSE 72; O2SAT 98; BMI 28.7
--- NOTE | 2025-03-08 14:18 | HO.NEPHOV_ITS ---
Vital Signs 03/08/25 14:18 Height 5 ft 5 in Weight 172 lb 8 oz BMI 28.7 BP 110/74 Blood Pressure Location Lt brachial Position Sitting Pulse 72 Pulse Source Pulse Oximeter Pulse Oximetry (%) 98 Oxygen Delivery Method Room Air Intake Visit Reasons: 10 mon follow up-[facility] Analyst Sales Required: No Accompanied by: Self / Same As Patient Allergies dust and pollen Allergy (Unknown, Verified 03/08/25 14:18) unknown HPI Comments Details: I had the privilege of seeing Mr. Rahman in follow-up of his hypertension and proteinuria. His brother and sister had in [facility] at a young age from ESRD likely from [place] nephropathy. He is tolerating his medications. His blood pressure has been at goal. He denies any skin rash, hematuria, edema or orthostatic symptoms. He claims to be compliant with his medications. He avoids nonsteroidal anti-inflammatories and maintains good hydration. There were no new active issues at the time of this office visit [facility] Medical History Hx of prostatitis Elevated liver enzymes History of COVID-19 Family history of kidney disease Essential hypertension Microalbuminuria Impaired fasting glucose Surgical History No pertinent past surgical history Family History Father HTN (hypertension) Stroke Mother Diabetes mellitus HTN (hypertension) Brother Kidney failure Maternal Grandmother Unknown family medical history Sister Breast cancer Son No problems noted. Social History Housing: House Alcohol intake: current Alcohol intake frequency: a few times a week Alcohol type: beer Patient Tobacco Use Status: Never used Tobacco e-Cigarette/Vaping Use: Never Used Second Hand Smoke Exposure: No service: No Current occupational status: employed Cognitive needs: No Hearing needs: No Vision needs: Yes Review of Systems Const All systems reviewed & are unremarkable except as noted in HPI and below Physical Exam Vital Signs: Last Vital Signs Pulse 72 03/08/25 14:18 BP 110/74 03/08/25 14:18 Pulse Ox 98 03/08/25 14:18 Oxygen Delivery Method Room Air 03/08/25 14:18 BMI result Body Mass Index 28.7 Const General: comfortable and no acute distress Orientation/consciousness: patient oriented x3 HEENT Head: Yes normocephalic Mouth: Normal oral and palatal mucosa present Eyes EOM: EOMs intact bilaterally Neck Neck: Yes supple Resp Auscultation: clear to auscultation bilaterally Cardio Jugular venous distension: no JVD Rate: regular rate GI Palpation (GI): Soft to palpation Auscultation: normal bowel sounds General: Yes no CVA tenderness Back/Spine/Pelvis Back: no CVA tenderness Skin General skin exam: no rashes or lesions noted Neuro General: patient oriented x3 and moves all extremities Extrem General: Yes no pedal edema Results Reviewed Nephrology Results: Sodium, (135-145) 141 mmol/L 01/24/25 Potassium, (3.3-5.1) 4.2 mmol/L 01/24/25 Chloride, (96-108) 107 mmol/L 01/24/25 Carbon Dioxide, (22-29) 27 mmol/L 01/24/25 BUN, (9-16) 14 mg/dL 01/24/25 Creatinine, (0.5-1.4) 0.71 mg/dL 01/24/25 Calcium, (8.4-10.2) 8.7 mg/dL Δ 08/11/24 Urine Protein, (Neg-Trace) Negative mg/dL 04/13/24 Urine Creatinine 134.96 mg/dL 01/24/25 Protein/Creatinin Ratio TNP 01/24/25 Renal US 01/24/21 Assessment & Plan Assessment & Plan (1) Essential hypertension: Code(s): I10 - Essential (primary) hypertension Category: Medical (2) Proteinuria: Code(s): R80.9 - Proteinuria, unspecified Category: Medical Qualifiers: Proteinuria type: other Qualified Code(s): R80.8 - Other proteinuria Plan Miguel had proteinuria for a while. His family has a history of [place] nephropathy. His proteinuria is not detectable on IRWIN-inhibitor. His blood pressure has been at goal. His renal functions are normal. He has no hematuria. There is no indication for any renal biopsy now. He avoids nonsteroidal anti-inflammatories and maintain good hydration. He is on statins. I did not make any medication changes today. Follow-up lab work ordered. Answered all questions Orders: Orders Protein Creatinine Ratio, Ur 1 Year I10 - Essential (primary) hypertension, R80.8 - Other proteinuria Blood Urea Nitrogen 1 Year I10 - Essential (primary) hypertension, R80.8 - Other proteinuria Electrolytes 1 Year I10 - Essential (primary) hypertension, R80.8 - Other proteinuria Blood Urea Nitrogen 6 Months I10 - Essential (primary) hypertension, R80.8 - Other proteinuria Protein Creatinine Ratio, Ur 6 Months I10 - Essential (primary) hypertension, R80.8 - Other proteinuria Creatinine 1 Year I10 - Essential (primary) hypertension, R80.8 - Other proteinuria Electrolytes 6 Months I10 - Essential (primary) hypertension, R80.8 - Other proteinuria Creatinine 6 Months I10 - Essential (primary) hypertension, R80.8 - Other proteinuria Medications: Refilled lisinopril 40 mg PO DAILY 90 tabs 3RF Coding Level of Care Code Est Pt Level 4 (84874) Diagnoses Essential hypertension I10 Other proteinuria R80.8 Proteinuria type: other
--- OUTSIDE RECORDS SUMMARY | 2025-03-08 14:56 | XMS_ITS | Encounter Summary ---
Author Organization [facility] Address [address] [facility] [address] [place] [address] Phone Care Team Providers Care Plane Runner Name Role Phone Gucci Sorto MD Primary Care Provider [phone]- [phone] Reason for Visit * Reason Onset Date Comments Med Refill 04/17/2024 Encounter Details Date Type Department Care Team (Late st Contact Info) Description 04/17/2024 [facility]ill [facility] [address] [place] [id number] Ayo Farris MD [address] [facility] [address] [place] [phone] Social History Tobacco Use Types Packs/Day Years [...] on filedocumented in this encounter Care Teams Plane Runner Relationship Specialty Start Date End Date Gucci Sorto MD [address] [place] [address] PCP - General Internal Medicine 11/13/20 documented as of this encounter
== END 2025-03-08 14:28 | disposition home or self-care (01) ==
LOC: HO.HKA 14:14
PROVIDERS: PCP Internal Medicine; Visit Provider Internal Medicine Nephrology
DX: I10 Essential (primary) hypertension (principal); R80.8 Other proteinuria
CPT/HCPCS: 99214

== ENCOUNTER 2025-03-17 09:13 | Outpatient (REF) | payer BC, SELFPAY ==
[2025-03-17 11:54] LABS: Syphilis Screen Nonreactive (Nonreactive)
[2025-03-17 11:55] LABS: HIV Num 1 0.05 S/CO (0.00-0.99); ~HepC Num1 0.09 S/CO (0.00-0.79); ~Hepatitis C Antibody Nonreactive (Nonreactive)
[2025-03-17 12:37] LABS: CT PCR Urine NOT DETECTED (Not Detect.); NG PCR Urine NOT DETECTED (Not Detect.)
== END 2025-03-17 09:14 | disposition home or self-care (01) ==
LOC: HO.HMGCLDS 09:13
PROVIDERS: PCP Internal Medicine; Visit Provider Physician Assistant Medical
DX: Z11.3 Encounter for screening for infections with a predominantly sexual mode of transmission (principal); Z11.8 Encounter for screening for other infectious and parasitic diseases; Z11.59 Encounter for screening for other viral diseases; Z11.4 Encounter for screening for human immunodeficiency virus [HIV]
CPT/HCPCS: 36415; 86780; 86803; 87389; 87491; 87591

== ENCOUNTER 2025-03-17 09:13 | Outpatient (AMB) | payer BC, SELFPAY ==
[2025-03-17 09:15] VITALS: BP 142/80; PULSE 82; TEMP 36.9; O2SAT 98; BMI 29.1
--- NOTE | 2025-03-17 09:15 | MHC.OFFWIV ---
Intake Vital Signs 03/17/25 09:15 Height 5 ft 5 in Weight 175 lb BMI 29.1 BP 142/80 H Blood Pressure Location Lt brachial Position Sitting Pulse 82 Pulse Source Pulse Oximeter Temp 98.4 F Temp Source Oral Pulse Oximetry (%) 98 Oxygen Delivery Method Room Air Intake Visit Reasons: EP-std testing Intake Note: pt presents for STI testing Patient Tobacco Use Status: Never used Tobacco Allergies dust and pollen Allergy (Unknown, Verified 03/17/25 09:21) unknown Do you need a note to return to daycare/school/sports/work: No HPI HPI Comments History of Present Illness Details History of Present Illness - The patient is a 49-year-old male presenting with a request for STI screening. - He reports no symptoms such as discharge or urinary issues. - The patient has no specific concerns but desires routine testing for peace of mind. - He denies any symptoms of concern today. - He denies dysuria, hematuria, rashes, lesions, urethral discharge, or abd pain. Physical Exam General: Cooperative, healthy appearing, comfortable, no acute distress and well developed Orientation: Patient oriented x3 Respiratory: Normal respiratory effort and able to speak in complete sentences. Clear to auscultation bilaterally Cardiovascular: Regular rate and rhythm. Normal S1 and S2 GI: Normal to inspection. Soft to palpation and nontender Skin: No rashes or lesions noted Patient was informed and verbally consented to the use of an ambient scribe for clinic note documentation during this visit. [facility] Medical History Hx of prostatitis Elevated liver enzymes History of COVID-19 Family history of kidney disease Essential hypertension Microalbuminuria Impaired fasting glucose Surgical History No pertinent past surgical history Family History Father HTN (hypertension) Stroke Mother Diabetes mellitus HTN (hypertension) Brother Kidney failure Maternal Grandmother Unknown family medical history Sister Breast cancer Son No problems noted. Social History Housing: House Alcohol intake: current Alcohol intake frequency: a few times a week Alcohol type: beer Patient Tobacco Use Status: Never used Tobacco e-Cigarette/Vaping Use: Never Used Second Hand Smoke Exposure: No service: No Current occupational status: employed Cognitive needs: No Hearing needs: No Vision needs: Yes Review of Systems Const All systems reviewed & are unremarkable except as noted in HPI and below Physical Exam Vital Signs: Last Vital Signs Temp 98.4 F 03/17/25 09:15 Pulse 82 03/17/25 09:15 BP 142/80 H 03/17/25 09:15 Pulse Ox 98 03/17/25 09:15 Oxygen Delivery Method Room Air 03/17/25 09:15 BMI result Body Mass Index 29.1 Assessment & Plan Assessment & Plan (1) Routine screening for STI (sexually transmitted infection): Code(s): Z11.3 - Encounter for screening for infections with a predominantly sexual mode of transmission Plan Plan - Urine test for gonorrhea and chlamydia was ordered. - Blood tests for HIV, syphilis, and hepatitis C were ordered. - The patient was instructed to visit the lab next door for sample collection. - Results will be communicated via phone call and available on the patient portal. Orders: Orders Hepatitis C Antibody Today Z11.3 - Encounter for screening for infections with a predominantly sexual mode of transmission CT NG by PCR Urine Today Z11.3 - Encounter for screening for infections with a predominantly sexual mode of transmission HIV Ab/Ag Today Z11.3 - Encounter for screening for infections with a predominantly sexual mode of transmission Syphilis Screen Today Z11.3 - Encounter for screening for infections with a predominantly sexual mode of transmission Coding Level of Care Code Est Pt Level 3 (77296) Diagnoses Routine screening for STI (sexually transmitted infection) Z11.3
--- OUTSIDE RECORDS SUMMARY | 2025-03-17 09:27 | XMS_ITS | Encounter Summary ---
Author Organization [facility] Address [address] [facility] [address] [place] [address] Phone Care Team Providers Care Movie Critic Name Role Phone Gucci Sorto MD Primary Care Provider +1- [phone] Reason for Visit * Reason Onset Date Comments Med Refill 04/17/2024 Encounter Details Date Type Department Care Team (Late st Contact Info) Description 04/17/2024 [facility]ill [facility] [address] [place] [id number] Ayo Farris MD [address] [facility] [address] [place] [phone] Social History Tobacco Use Types Packs/Day Years [...] on filedocumented in this encounter Care Teams Movie Critic Relationship Specialty Start Date End Date Gucci Sorto MD [address] [place] [address] PCP - General Internal Medicine 11/13/20 documented as of this encounter
== END 2025-03-17 10:28 | disposition home or self-care (01) ==
PROVIDERS: PCP Internal Medicine; Visit Provider Physician Assistant Medical
DX: Z11.3 Encounter for screening for infections with a predominantly sexual mode of transmission (principal)

== ENCOUNTER 2025-03-17 09:37 | Outpatient (REF) | payer BC, SELFPAY | END 2025-03-17 09:38 | disposition home or self-care (01) | LOC: HO.LAB 09:37 | PROVIDERS: Visit Provider Physician Assistant Medical | DX: Z13.89 Encounter for screening for other disorder (principal) ==

== ENCOUNTER 2025-05-10 11:46 | Outpatient (AMB) | payer BC, SELFPAY ==
--- OUTSIDE RECORDS SUMMARY | 2025-05-10 14:45 | XMS_ITS | Encounter Summary ---
Author Organization [facility] Address [address] [facility] [address] [place] [address] Phone Care Team Providers Care Grain Spouter Name Role Phone Gucci Sorto MD Primary Care Provider +1- [phone] Reason for Visit * Reason Onset Date Comments Med Refill 04/17/2024 Encounter Details Date Type Department Care Team (Late st Contact Info) Description 04/17/2024 [facility]ill [facility] [address] [place] [phone] Ayo Farris MD [address] [facility] [address] [place] [phone] Social History Tobacco Use Types Packs/Day Years [...] on filedocumented in this encounter Care Teams Grain Spouter Relationship Specialty Start Date End Date Gucci Sorto MD [address] [place] [address] PCP - General Internal Medicine 11/13/20 documented as of this encounter
--- OUTSIDE RECORDS SUMMARY | 2025-05-10 14:45 | XMS_ITS | Clinical Summary ---
Author Organization [facility] Address [address] [facility] [address] [place] [address] Phone Care Team Providers Care Weatherization Specialist Name Role Phone Gucci Sorto MD Primary Care Provider +1- [phone] Allergies Active Allergy Reactions Criticality Noted Date Comments Dust Mite Extract 01/03/2021 Pollen Extract 01/03/2021 Medications lisinopril 40 MG tablet Take 1 tablet (40 mg total) by mouth 1 (one) time each day 90 tablet 3 04/22/2023 Active rosuvastatin (CRESTOR) 5 MG tablet Take 1 tablet (5 mg total) by mouth 1 (one) time each day 30 tablet 08/16/2024 Active rosuvastatin (CRESTOR) 5 MG tablet Take 1 tablet (5 mg total) by mouth 1 (one) time each day 30 tablet 08/16/2024 Active Active Problems Problem Noted Date Diagnosed Date Proteinuria, not otherwise specified 03/27/2021 Essential (primary) hypertension 01/03/2021 Immunizations Immunization Administration Dates Next Due Influenza, MDCK, PF, Quadrivalent 05/22/2020 Family History Medical History Relation Comments Kidney disease Brother Hypertension Father Stroke Father Diabetes Mother Hypertension Mother Cancer Sister Relation Status Comments Brother Father Mother Sister Social History Tobacco Use Types Packs/Day Years Used Date Smoking Tobacco: Never Smokeless Tobacco: Never Tobacco Cessation:Counseling Given: Not Answered Alcohol Use Standard Drinks/Week Comments Never 0 (1 standard drink = 0.6 oz pur e alcohol) Sex and Gender Information Value Date Recorded Sex Assigned at Male 04/15/2023 9:22 AM EDT Legal Sex Male 4:09 PM EDT Gender Identity Male 04/15/2023 9:22 AM EDT Sexual Orientation Not on file Last Filed Vital Signs Vital Sign Reading Time Taken Comments Blood Pressure 110/76 04/22/2023 3:43 PM EDT Pulse 82 04/22/2023 3:43 PM EDT Temperature - - Respiratory Rate - - Oxygen Saturation 99% 07/02/2022 1:13 PM EST Inhaled Oxygen Concentration - - Weight 81.1 kg (178 lb 12.8 oz) 04/22/2023 3:43 PM EDT Height - - Body Mass Index - - Plan of Treatment Health Maintenance Due Date Last Done Comments Hepatitis B Vaccine (1 of 3 - 19+ 3-dose series) 1996 Pneumococcal Vaccine: Peds ( 0 to 5 Years) and At-Risk Patients (6 to 49 Years) (1 of 2 - PCV) 1996 Influenza Vaccine (#1) 2025 05/22/2020, 2019 Insurance [facility] Care Teams Weatherization Specialist Relationship Specialty Start Date End Date Gucci Sorto MD [address] [place] [id number] PCP - General Internal Medicine 11/13/20
== END 2025-05-10 11:48 | disposition home or self-care (01) ==
LOC: HO.HMGAL 11:46
PROVIDERS: PCP Internal Medicine; Visit Provider Registered Nurse Emergency
DX: J30.89 Other allergic rhinitis (principal)
CPT/HCPCS: 95117; 95165

== ENCOUNTER 2025-05-31 13:40 | Outpatient (AMB) | payer BC, SELFPAY | END 2025-05-31 13:41 | disposition home or self-care (01) | LOC: HO.HMGAL 13:40 | PROVIDERS: PCP Internal Medicine; Visit Provider Registered Nurse Emergency | DX: J30.89 Other allergic rhinitis (principal) | CPT/HCPCS: 95117; 95165 ==

== ENCOUNTER 2025-06-21 11:12 | Outpatient (AMB) | payer BC, SELFPAY ==
--- OUTSIDE RECORDS SUMMARY | 2025-06-21 13:37 | XMS_ITS | Clinical Summary ---
Author Organization [facility] Address [address] [facility] [address] [place] [address] Phone Care Team Providers Care Prepared Foods Team Leader Name Role Phone Gucci Sorto MD Primary Care Provider +1- [phone] Allergies Active Allergy Reactions Criticality Noted Date [...] Influenza Vaccine (#1) 2025 05/22/2020, 2019 Insurance [facility] Care Teams Prepared Foods Team Leader Relationship Specialty Start Date End Date Gucci Sorto MD [address] [place] [id number] PCP - General Internal Medicine 11/13/20
--- OUTSIDE RECORDS SUMMARY | 2025-06-21 13:37 | XMS_ITS | Encounter Summary ---
Author Organization [facility] Address [address] [facility] [address] [place] [address] Phone Care Team Providers Care Typing Pool Supervisor Name Role Phone Gucci Sorto MD Primary Care Provider +1- [phone] Reason for Visit * Reason Onset Date Comments Med Refill 04/17/2024 Encounter Details Date Type Department Care Team (Late st Contact Info) Description 04/17/2024 Refill [facility] [address] [place] [phone] Ayo Farris MD [address] [facility] [address] [place] [phone] Social History Tobacco Use Types Packs/Day Years [...] on filedocumented in this encounter Care Teams Typing Pool Supervisor Relationship Specialty Start Date End Date Gucci Sorto MD [address] [place] [address] PCP - General Internal Medicine 11/13/20 documented as of this encounter
== END 2025-06-21 11:13 | disposition home or self-care (01) ==
LOC: HO.HMGAL 11:12
PROVIDERS: PCP Internal Medicine; Visit Provider Registered Nurse Emergency
DX: J30.89 Other allergic rhinitis (principal)
CPT/HCPCS: 95117; 95165

== ENCOUNTER 2025-07-10 11:50 | Outpatient (AMB) | payer BC, SELFPAY | END 2025-07-10 11:52 | disposition home or self-care (01) | LOC: HO.HMGAL 11:50 | PROVIDERS: PCP Internal Medicine; Visit Provider Registered Nurse Emergency | DX: J30.89 Other allergic rhinitis (principal) | CPT/HCPCS: 95117; 95165 ==

== ENCOUNTER 2025-08-02 10:08 | Outpatient (REF) | payer BC, SELFPAY ==
[2025-08-02 14:47] LABS: Anion Gap 12 (12-20); Blood Urea Nitrogen 13 mg/dL (9-16); Carbon Dioxide 26 mmol/L (22-29); Chloride 105 mmol/L (96-108); Estimated Glomerular Filt Rate > 60; Potassium 4.1 mmol/L (3.3-5.1); Sodium 139 mmol/L (135-145)
[2025-08-02 16:09] LABS: Total Protein Urine Random < 7 mg/dL (<12)
== END 2025-08-02 10:09 | disposition home or self-care (01) ==
LOC: HO.HMGCLDS 10:08
PROVIDERS: PCP Internal Medicine; Visit Provider Internal Medicine Nephrology
DX: I10 Essential (primary) hypertension (principal); R80.8 Other proteinuria
CPT/HCPCS: 36415; 80051; 82565; 82570; 84156; 84520

== ENCOUNTER 2025-08-02 11:01 | Outpatient (AMB) | payer BC, SELFPAY | END 2025-08-02 11:01 | disposition home or self-care (01) | LOC: HO.HMGAL 11:01 | PROVIDERS: PCP Internal Medicine; Visit Provider Registered Nurse Emergency | DX: J30.89 Other allergic rhinitis (principal) | CPT/HCPCS: 95117; 95165 ==